=== PATIENT | male | born 1995 | race American Indian/Alaskan Native ===

== ENCOUNTER 2018-11-02 11:06 | Inpatient (IN) | payer SELFPAY ==
--- NOTE | 2018-11-02 11:52 | Emergency Department Report ---
HPI - General Chief Complaint: Altered Mental Status Time Seen by Provider: 11/02/18 11:38 - HPI HPI: Room 21 The patient is a 23-year-old male presenting with chief complaint of altered mental status. The patient is currently at [facility]. The patient poorly went to the gas station when he came back he was found sitting on the bed drooling and incontinent. Patient A&O 3 currently and denies taking any recreational drugs Location: Mental state Duration: [See above] Quality: Altered Severity: [See above] Modifying factors: [see above] Context: [see above] Mode of transportation: [not driving] ED Past Medical Hx - Past Medical History Previous Medical History?: Yes Hx Psychiatric Treatment: Yes (Paranoid schizophrenia) Additional medical history: Heart murmur, traumatic brain injury - Surgical History Past Surgical History?: No - Family History Family history: no significant - Social History Smoking Status: Current Every Day Smoker Substance Use Type: None ED Review of Systems ROS: Stated complaint: AMS Other details as noted in HPI Constitutional: no symptoms reported Eyes: denies: eye pain ENT: denies: throat pain Respiratory: no symptoms reported Cardiovascular: denies: chest pain Endocrine: no symptoms reported Gastrointestinal: denies: abdominal pain Genitourinary: denies: dysuria Musculoskeletal: denies: back pain Neurological: other (altered mental status) Physical Exam - Physical Exam Vital Signs: Vital Signs 11/02/18 11:24 Temperature 97.9 F Pulse Rate 102 H Respiratory 16 Rate Blood Pressure 128/66 O2 Sat by Pulse 97 Oximetry Physical Exam: GENERAL: The patient is well-developed well-nourished male lying on stretcher not appearing to be in acute distress. [] HEENT: Atraumatic. Extraocular motions are intact. Patient has moist mucous membranes. NECK: Supple. Trachea midline CHEST/LUNGS: Clear to auscultation. There is no respiratory distress noted. HEART/CARDIOVASCULAR: Regular. There is no tachycardia. There is no gallop rub or murmur. ABDOMEN: Abdomen is soft, nontender. Patient has normal bowel sounds. There is no abdominal distention. SKIN: There is no rash. There is no edema. There is no diaphoresis. NEURO: The patient is awake, alert, and oriented. The patient is cooperative. The patient has no focal neurologic deficits. The patient has normal speech. Cranial nerves II through XII grossly intact, no drift MUSCULOSKELETAL: There is no evidence of acute injury. ED Course Vital Signs 11/02/18 11:24 Temperature 97.9 F Pulse Rate 102 H Respiratory 16 Rate Blood Pressure 128/66 O2 Sat by Pulse 97 Oximetry ED Medical Decision Making - Lab Data Result diagrams: 11/02/18 11:52 11/02/18 11:52 Laboratory Tests 11/02/18 11/02/18 11/02/18 11:52 11:52 11:52 WBC 5.3 RBC 3.98 Hgb 13.3 Hct 39.4 MCV 99 H MCH 33 H MCHC 34 RDW 14.9 Plt Count 305 Lymph % (Auto) 23.5 [place] % (Auto) 7.9 H Eos % (Auto) 0.5 Baso % (Auto) 0.5 Lymph # 1.2 [place] # 0.4 Eos # 0.0 Baso # 0.0 Seg Neutrophils % 67.6 Seg Neutrophils # 3.5 Sodium 142 Potassium 4.5 Chloride 103.5 Carbon Dioxide 27 Anion Gap 16 BUN 10 Creatinine 0.8 Estimated GFR > 60 BUN/Creatinine Ratio 13 Glucose 130 H Calcium 9.4 Total Bilirubin 0.30 AST 24 ALT 13 Alkaline Phosphatase 98 Total Creatine Kinase 594 H CK-MB (CK-2) 3.0 CK-MB (CK-2) Rel Index 0.5 Troponin T < 0.010 Total Protein 8.3 H Albumin 4.6 Albumin/Globulin Ratio 1.2 TSH Free T4 Salicylates < 0.3 L Urine Opiates Screen Urine Methadone Screen Acetaminophen Ur Barbiturates Screen Ur Phencyclidine Scrn Ur Amphetamines Screen U Benzodiazepines Scrn Urine Cocaine Screen U Marijuana (THC) Screen Drugs of Abuse Note Plasma/Serum Alcohol 11/02/18 11/02/18 11/02/18 11:52 11:52 11:52 WBC RBC Hgb Hct MCV MCH MCHC RDW Plt Count Lymph % (Auto) [place] % (Auto) Eos % (Auto) Baso % (Auto) Lymph # [place] # Eos # Baso # Seg Neutrophils % Seg Neutrophils # Sodium Potassium Chloride Carbon Dioxide Anion Gap BUN Creatinine Estimated GFR BUN/Creatinine Ratio Glucose Calcium Total Bilirubin AST ALT Alkaline Phosphatase Total Creatine Kinase CK-MB (CK-2) CK-MB (CK-2) Rel Index Troponin T Total Protein Albumin Albumin/Globulin Ratio TSH 2.540 Free T4 1.09 Salicylates Urine Opiates Screen Urine Methadone Screen Acetaminophen < 5.0 L Ur Barbiturates Screen Ur Phencyclidine Scrn Ur Amphetamines Screen U Benzodiazepines Scrn Urine Cocaine Screen U Marijuana (THC) Screen Drugs of Abuse Note Plasma/Serum Alcohol < 0.01 11/02/18 Unknown WBC RBC Hgb Hct MCV MCH MCHC RDW Plt Count Lymph % (Auto) [place] % (Auto) Eos % (Auto) Baso % (Auto) Lymph # [place] # Eos # Baso # Seg Neutrophils % Seg Neutrophils # Sodium Potassium Chloride Carbon Dioxide Anion Gap BUN Creatinine Estimated GFR BUN/Creatinine Ratio Glucose Calcium Total Bilirubin AST ALT Alkaline Phosphatase Total Creatine Kinase CK-MB (CK-2) CK-MB (CK-2) Rel Index Troponin T Total Protein Albumin Albumin/Globulin Ratio TSH Free T4 Salicylates Urine Opiates Screen Presumptive negative Urine Methadone Screen Presumptive negative Acetaminophen Ur Barbiturates Screen Presumptive negative Ur Phencyclidine Scrn Presumptive negative Ur Amphetamines Screen Presumptive negative U Benzodiazepines Scrn Presumptive negative Urine Cocaine Screen Presumptive negative U Marijuana (THC) Screen Presumptive negative Drugs of Abuse Note Disclamer Plasma/Serum Alcohol - Differential Diagnosis substance abuse, ICH, electrolyte abnormality Critical care attestation.: If time is entered above; I have spent that time in minutes in the direct care of this critically ill patient, excluding procedure time. ED Disposition Clinical Impression: Altered mental status Disposition: DC-07 LEFT AGAINST MED ADVICE Is pt being admited?: No Does the pt Need Aspirin: No Condition: Undetermined Time of Disposition: 14:02
[2018-11-02 12:02] LABS: Basophils % (Auto) 0.5 % (0.0-1.8); Eosinophils % (Auto) 0.5 % (0.0-4.3); Hematocrit 39.4 % (35.5-45.6); Hemoglobin 13.3 gm/dl (11.8-15.2); Lymphocytes # (Auto) 1.2 K/mm3 (1.2-5.4); Lymphocytes % (Auto) 23.5 % (13.4-35.0); Mean Corpuscular HGB Conc 34 % (32-34); Mean Corpuscular Volume 99 fl (84-94); Monocytes # (Auto) 0.4 K/mm3 (0.0-0.8); Monocytes % (Auto) 7.9 % (0.0-7.3); Platelet Count 305 K/mm3 (140-440); Red Blood Count 3.98 M/mm3 (3.65-5.03); Red Cell Distribution Width 14.9 % (13.2-15.2)
[2018-11-02 12:53] LABS: Alanine Aminotransferase 13 units/L (7-56); Albumin 4.6 g/dL (3.9-5); BUN/Creatinine Ratio 13; Blood Urea Nitrogen 10 mg/dL (9-20); Calcium 9.4 mg/dL (8.4-10.2); Hemolysis Index 12
[2018-11-02 13:05] LABS: Free T4 (Free Thyroxine) 1.09 ng/dL (0.76-1.46)
[2018-11-02 13:36] LABS: Amphetamine Screen,Urine PRESUMPTIVE NEGATIVE; Benzodiazepines Screen,Urine PRESUMPTIVE NEGATIVE; Cannabinoid Screen,Urine PRESUMPTIVE NEGATIVE; Cocaine Screen,Urine PRESUMPTIVE NEGATIVE; Methadone Screen,Urine PRESUMPTIVE NEGATIVE; Opiate Screen,Urine PRESUMPTIVE NEGATIVE
--- NOTE | 2018-11-02 14:49 | Cat Scan Report ---
CT scan of head without IV contrast: History: Altered mental status. Findings: Ventricles are normal in size and midline in location. Ill-defined area of low attenuation noted in the left frontal lobe without definite midline shift or compression of the adjacent lateral ventricle. Normal brainstem and cerebellum. No extra-axial fluid collection. Impression: Low attenuation area left frontal region is probably related to chronic ischemia. No previous studies available for comparison. Clinical correlation and if necessary Recommend MRI scan for further evaluation.
[2018-11-02] MEDS ORDERED: NACL 0.9% 1000 ML 1,000 ML IV ONE (17:08)
[2018-11-02] MEDS ORDERED: KEPPRA 1,000 MG/NS 0.75% 100ML 1,000 MG/100 ML BAG IV ONE (17:08)
[2018-11-02] MEDS ORDERED: TYLENOL PO PRN (21:56)
[2018-11-02] MEDS ORDERED: ZOFRAN IV PRN (21:56)
[2018-11-02] MEDS ORDERED: SODIUM CHLORIDE FLUSH SYRINGE 10 ML IV PRN (21:56)
--- NOTE | 2018-11-02 21:56 | History and Physical Report ---
History of Present Illness Date of examination: 11/02/18 History of present illness: Patient is sedated, unable to give a history. History is obtained from the chart. This is a 23-year-old man from [place] with a history of schizophrenia, TBI sent to the emergency room for evaluation. He was reported that the patient was found to be incontinent, drooling while sitting on bed, he was sent to emergency room for further evaluation. In the emergency room he refused admission. He was later found on the floor post-ictal per the nurse. His CAT scan of the head was abnormal, showing abnormality in the frontal area. Review of system is unobtainable SPAST MEDICAL HISTORY:schizophrenia, TBI PAST SURGICAL HISTORY: Unknown SOCIAL HISTORY: Unknown FAMILY HISTORY: Unknown Medications and Allergies Allergies Allergy/AdvReac Type Severity Reaction Status Date / Time gabapentin [From Neurontin] Allergy Unknown Verified 11/02/18 11:38 risperidone [From Risperdal] Allergy Unknown Verified 11/02/18 11:38 Exam - Physical Exam Narrative exam: General Apperance: The patient lying in bed, breathing comfortable, intubated HEENT: Normocephalic, atraumatic. Pupils equally round and reactive to light, unable to do EOM, no sclericterus or JVD or thyromegaly or nodule. , no carotid bruit, mucous membranes moist, unable to examine oral cavity, ET tube in place Heart: S1-S2, regular is rhythm Lungs: Clear to auscultation bilaterally, breathing comfortable Abdomen: Positive bowel sounds, soft, nondistended, no organomegaly Extremities: No edema cyanosis clubbing Skin: no rash, nodule, warm and dry Neuro: Sedated - Constitutional Vitals: Temp Pulse Resp BP Pulse Ox 97.9 F 76 16 129/79 98 11/02/18 21:00 11/02/18 21:00 11/02/18 21:00 11/02/18 21:00 11/02/18 21:00 Results - Labs CBC & Chem 7: 11/02/18 11:52 11/02/18 11:52 Labs: Abnormal lab results 11/02/18 11/02/18 11/02/18 Range/Units 11:52 11:52 11:52 MCV 99 H (84-94) fl MCH 33 H (28-32) pg [place] % (Auto) 7.9 H (0.0-7.3) % Glucose 130 H (75-100) mg/dL Total Creatine Kinase 594 H (55-170) units/L Total Protein 8.3 H (6.3-8.2) g/dL Salicylates < 0.3 L (2.8-20.0) mg/dL Acetaminophen (10.0-30.0) ug/mL 11/02/18 Range/Units 11:52 MCV (84-94) fl MCH (28-32) pg [place] % (Auto) (0.0-7.3) % Glucose (75-100) mg/dL Total Creatine Kinase (55-170) units/L Total Protein (6.3-8.2) g/dL Salicylates (2.8-20.0) mg/dL Acetaminophen < 5.0 L (10.0-30.0) ug/mL - Imaging and Cardiology CT Scan - head: report reviewed Assessment and Plan Assessment Altered mental status, possible seizure Abnormal CT head Schizophrenia H/o TBI Plan Admit to medicine Start IV fluid, ativan and obatain MR head consult neurology, neuro checks, DVT prophalaxis
[2018-11-02] MEDS ORDERED: NACL 0.9% 1000 ML 1,000 ML IV SCH (22:00)
[2018-11-02] MEDS: SODIUM CHLORIDE FLUSH SYRINGE 10 ML IV SCH (22:13)
[2018-11-02] MEDS ORDERED: ATIVAN IV PRN (22:14)
[2018-11-03 07:26] LABS: BUN/Creatinine Ratio 11; Blood Urea Nitrogen 9 mg/dL (9-20); Calcium 8.6 mg/dL (8.4-10.2); Hemolysis Index 20
[2018-11-03 07:26] LABS: Basophils # (Auto) 0.1 K/mm3 (0.0-0.1); Basophils % (Auto) 0.8 % (0.0-1.8); Eosinophils # (Auto) 0.1 K/mm3 (0.0-0.4); Eosinophils % (Auto) 1.7 % (0.0-4.3); Hematocrit 37.6 % (35.5-45.6); Hemoglobin 12.6 gm/dl (11.8-15.2); Lymphocytes # (Auto) 2.4 K/mm3 (1.2-5.4); Lymphocytes % (Auto) 38.3 % (13.4-35.0); Mean Corpuscular HGB Conc 33 % (32-34); Mean Corpuscular Volume 101 fl (84-94); Monocytes # (Auto) 0.5 K/mm3 (0.0-0.8); Monocytes % (Auto) 8.7 % (0.0-7.3); Platelet Count 265 K/mm3 (140-440); Red Blood Count 3.74 M/mm3 (3.65-5.03)
[2018-11-03] MEDS: SODIUM CHLORIDE FLUSH SYRINGE 10 ML IV SCH ×2 (11:30→21:44)
[2018-11-03] MEDS: LOVENOX SUB-Q SCH (11:30)
[2018-11-03] MEDS: KEPPRA PO SCH ×2 (12:47→21:39)
--- NOTE | 2018-11-03 13:55 | Progress Note ---
Subjective Date of service: 11/03/18 Interval history: very complicated lesion in the left frontal lobe - ? stroke appears Objective - Vital Sign Vital Signs - 12hr 11/03/18 11/03/18 06:14 12:17 Temperature 98.1 F 98.3 F Pulse Rate 85 76 Respiratory 20 20 Rate Blood Pressure 122/56 140/72 O2 Sat by Pulse 96 98 Oximetry - Laboratory Findings CBC and BMP: 11/03/18 04:00 11/03/18 06:30 Abnormal Lab Findings: Abnormal Labs 11/02/18 11/02/18 11/02/18 11:52 11:52 11:52 MCV 99 H MCH 33 H Lymph % (Auto) [place] % (Auto) 7.9 H Chloride Glucose 130 H Total Creatine Kinase 594 H Total Protein 8.3 H Salicylates < 0.3 L Acetaminophen 11/02/18 11/03/18 11/03/18 11:52 04:00 06:30 MCV 101 H MCH 34 H Lymph % (Auto) 38.3 H [place] % (Auto) 8.7 H Chloride 109.2 H Glucose 116 H Total Creatine Kinase Total Protein Salicylates Acetaminophen < 5.0 L
--- NOTE | 2018-11-03 15:07 | Magnetic Resonance Report ---
MRI BRAIN WITHOUT CONTRAST: 11/03/18 CLINICAL: Altered mental status. COMPARISON: 11/02/18 CT head TECHNIQUE: Axial diffusion, T1, T2, gradient echo T2*, coronal and axial FLAIR and sagittal T1 sequences on a 1.5 Romy magnet. FINDINGS: The ventricles and overall size of sulci are normal for age. Encephalomalacia involving the inferior left frontal lobe and anterior inferior left temporal lobe. Encephalomalacia also involves the inferior right frontal gyrus. No restricted diffusion. White matter hyperintensity on T2 and FLAIR involving the frontal lobes is consistent with postischemic gliosis. No mass or mass effect. No hemorrhage, edema or extra-axial collection. No chronic microbleeds on the gradient echo sequence. Normal pituitary and optic chiasm. The brainstem and cerebellum are normal. Intact vascular flow voids. Mild right ethmoid sinusitis. The rest of the sinuses are clear. . The orbits, and soft tissues are normal. Normal calvarium and skull base. IMPRESSION: No evidence of acute/subacute infarct or hemorrhage. 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
--- NOTE | 2018-11-03 15:48 | Progress Note ---
Subjective Date of service: 11/03/18 Interval history: dictated a long note since I went over all films with radiology as well as intnse personal review and there is clear cut evidence of large old frontal lobe tip injury with scar- chronic and small area of right frontal lobe and very sever left temporal lobe tip injury.. al lesions are same age... almost certainly due to traumatic injury agree with anticonvulsants Objective - Vital Sign Vital Signs - 12hr 11/03/18 11/03/18 06:14 12:17 Temperature 98.1 F 98.3 F Pulse Rate 85 76 Respiratory 20 20 Rate Blood Pressure 122/56 140/72 O2 Sat by Pulse 96 98 Oximetry - Laboratory Findings CBC and BMP: 11/03/18 04:00 11/03/18 06:30 Abnormal Lab Findings: Abnormal Labs 11/02/18 11/02/18 11/02/18 11:52 11:52 11:52 MCV 99 H MCH 33 H Lymph % (Auto) [place] % (Auto) 7.9 H Chloride Glucose 130 H Total Creatine Kinase 594 H Total Protein 8.3 H Salicylates < 0.3 L Acetaminophen 11/02/18 11/03/18 11/03/18 11:52 04:00 06:30 MCV 101 H MCH 34 H Lymph % (Auto) 38.3 H [place] % (Auto) 8.7 H Chloride 109.2 H Glucose 116 H Total Creatine Kinase Total Protein Salicylates Acetaminophen < 5.0 L
--- NOTE | 2018-11-04 08:16 | Progress Note ---
Assessment and Plan Altered mental status, possible seizure - ativan as needed, started on keppra - neurology consulted, EEG/MRI ordered Abnormal CT head, MRI pending Schizophrenia, will cont home meds when available H/o TBI, supportive care DVT prophalaxis, lovenox Subjective Date of service: 11/03/18 Interval history: Patient seen and examined. Medical records and medication list reviewed. No acute event overnight noted by the RN. Patient denies any chest pain or difficulty breathing. Patient is tolerating diet. Discussed plan of care at bedside with patient. No further seizure like activity Objective - Exam Narrative Exam: GENERAL: well-developed -[place] male lying on bed appeared to be in no discomfort. HEENT: Normocephalic. Atraumatic. No conjunctival congestion or icterus. Patient has moist mucous membranes. NECK: Supple. Trachea midline. CHEST/LUNGS: Clear to auscultated bilaterally, breathing nonlabored. No wheezes crackles or rhonchi. HEART/CARDIOVASCULAR: Regular in rate and rhythm. S1 and S2 positive. ABDOMEN: Abdomen is soft, nontender. Patient has normal bowel sounds. SKIN: There is no rash. Warm and dry. NEURO: No focal motor deficit. Follows command. MUSCULOSKELETAL: No joint effusion or tenderness. EXTRIMITY: No edema, no cyanosis or clubbing. PSYCH: Cooperative. - Constitutional Vitals: Vital Signs - 12hr 11/03/18 11/04/18 11/04/18 22:00 00:29 05:20 Temperature 97.9 F 97.9 F Pulse Rate 72 77 Respiratory 18 18 20 Rate Respiratory 18 Rate [denies] Blood Pressure 90/41 113/60 O2 Sat by Pulse 97 99 Oximetry - Labs CBC & Chem 7: 11/03/18 04:00 11/03/18 06:30 Labs: Abnormal lab results 11/03/18 Range/Units 06:30 Chloride 109.2 H (98-107) mmol/L Glucose 116 H (75-100) mg/dL
[2018-11-04] MEDS: KEPPRA PO SCH (09:42)
[2018-11-04] MEDS: LOVENOX SUB-Q SCH (09:43)
[2018-11-04] MEDS: SODIUM CHLORIDE FLUSH SYRINGE 10 ML IV SCH (09:44)
[2018-11-04] MEDS ORDERED: AFLURIA QUAD 2018-2019 SYRINGE IM ONE (12:00)
[2018-11-04 12:10] VITALS: BP 128/64
--- NOTE | 2018-11-04 12:15 | Discharge Summary ---
Providers - Providers Date of Admission: 11/02/18 21:56 Date of discharge: 11/04/18 Attending physician: STEFF DURHAM 11/02/18 21:56 Consult to Physician [CONS] Routine Comment: Consulting Provider: RHIANNON CUADRA Physician Instructions: Reason For Exam: [facility] Condition: Undetermined Pertinent studies: CT head Brain MRI Hospital course: This is a 23-year-old man from [place] with a history of schizophrenia, TBI sent to the emergency room as he was found to be incontinent, drooling while sitting on bed. In the emergency room he was found on the floor post-ictal per the nurse. His CAT scan of the head was abnormal, showing abnormality in the frontal area. He was started on Keppra, neurology consulted. MRI brain showed no acute process rather than chronic infract. Patient was then discharged with keppra in stable condition. Discharge diagnosis: Altered mental status, - due to postictal stage from seizure, now resolved Acute breakthrough seizure - Placed on ativan as needed, started on keppra - neurology consulted, EEG/MRI ordered Abnormal CT head, MRI showed no new process Schizophrenia, no acute psychosis, outpt followup H/o TBI, supportive care DVT prophalaxis, lovenox Physical exam GENERAL: well-developed -[place]amanian male lying on bed appeared to be in no discomfort. HEENT: Normocephalic. Atraumatic. No conjunctival congestion or icterus. Patient has moist mucous membranes. NECK: Supple. Trachea midline. CHEST/LUNGS: Clear to auscultated bilaterally, breathing nonlabored. No wheezes crackles or rhonchi. HEART/CARDIOVASCULAR: Regular in rate and rhythm. S1 and S2 positive. ABDOMEN: Abdomen is soft, nontender. Patient has normal bowel sounds. SKIN: There is no rash. Warm and dry. NEURO: No focal motor deficit. Follows command. MUSCULOSKELETAL: No joint effusion or tenderness. EXTRIMITY: No edema, no cyanosis or clubbing. PSYCH: Cooperative. Disposition: DC-01 TO HOME OR SELFCARE Time spent for discharge: 34 minutes Core Measure Documentation - Palliative Care Palliative Care/ Comfort Measures: Not Applicable - Core Measures Any of the following diagnoses?: none Exam - Constitutional Vitals: Temp Pulse Resp BP Pulse Ox 98.9 F 76 18 128/64 96 11/04/18 11:24 11/04/18 11:24 11/04/18 11:24 11/04/18 11:24 11/04/18 11:24 Plan Activity: advance as tolerated, no driving until cleared by PCP, fall precautions Weight Bearing Status: Weight Bear as Tolerated Diet: regular Follow up with: PRIMARY CARE, [Referring] - 3-5 Days RHIANNON CUADRA MD [Staff Physician] - 7 Days Prescriptions: levETIRAcetam [Keppra TAB] 750 mg PO BID #60 tablet
--- NOTE | 2018-11-04 12:41 | Progress Note ---
Subjective Date of service: 11/04/18 Interval history: spoke to patient about about hx and clearly this was massive head trauma he has good recall for situation- advise yousuf menard and can go home Objective - Vital Sign Vital Signs - 12hr 11/04/18 11/04/18 05:20 11:24 Temperature 97.9 F 98.9 F Pulse Rate 77 76 Respiratory 20 18 Rate Blood Pressure 113/60 128/64 O2 Sat by Pulse 99 96 Oximetry - Laboratory Findings CBC and BMP: 11/03/18 04:00 11/03/18 06:30 Abnormal Lab Findings: Abnormal Labs 11/02/18 11/02/18 11/02/18 11:52 11:52 11:52 MCV 99 H MCH 33 H Lymph % (Auto) [place] % (Auto) 7.9 H Chloride Glucose 130 H Total Creatine Kinase 594 H Total Protein 8.3 H Salicylates < 0.3 L Acetaminophen 11/02/18 11/03/18 11/03/18 11:52 04:00 06:30 MCV 101 H MCH 34 H Lymph % (Auto) 38.3 H [place] % (Auto) 8.7 H Chloride 109.2 H Glucose 116 H Total Creatine Kinase Total Protein Salicylates Acetaminophen < 5.0 L
--- NOTE | 2018-11-04 13:04 | Consultation ---
HISTORY OF PRESENT ILLNESS: This is a 23-year-old male who entered the Emergency Room at [facility] on 11/02/2018. He presented to the hospital and was in a confused, disoriented state. Apparently, signed out AMA and then returned to the hospital after leaving, wishing to reconsider his decision to leave against medical advice. A CT had been shown to show a low density mass in the left frontal region. I have reviewed over his MRI with the radiologist and clearly this does show on the MRI, an area within the left frontotemporal region, which does not match the distribution of the artery, a chronic lesion. I would specifically note that on the diffusion weighted images, this area is not seen at all. Therefore, this is not an acute lesion but chronic, has all the characteristics that one would think would be, because of the T2 weighted images showing a low density area in the left frontal tip as well as a subfrontal region on the left and even it is much so on the right subfrontal area within the cortical ____ which is the subfrontal area, an area of low density. This has all the characteristics of a chronic area of brain lesion, likely due to trauma. I cannot comment about the period of time in which it has occurred, but the confluence of the regions and areas involved are nonvascular, being a bifrontal lesion, predominantly more so on the left than the right, but as well also a very large lesion in the left temporal tip. As would be expected, this would be very prone to producing seizures given its distribution. The patient has a severely atrophic left temporal tip on the T1 weighted images on the MR and as well a lack of brain tissue on the similar sequences on the left subfrontal and left frontal tip and to a certain extent in the right side; there is also an effect in the frontal lobe. So I would conclude there is a bifrontal lesion more so on the left than the right and as well lesion involving the entire left temporal tip. This characteristic pattern is typically seen in structural lesions in the brain following fairly severe coup contrecoup head injuries, typically involving the frontal lobe, and although this history may be lacking, it certainly matches with the MRI findings. Classically these conditions are known to produce seizures in a very high percent of the time. I did subsequently go over the bone windows on the CT. I do not see that the patient has any defects in the inner table of the skull. There is no evidence of any previous cranial surgery in this region. I do not see any bony defects in the inner table of the skull either in this region making me suspect a chronic fracture or CSF leak, and the frontal sinus is intact on the left side, leading me to believe that this is not acute, as it would be expected the frontal sinus to be obliterated if this was more of an acute lesion. IMPRESSION: MRI and CT scan findings are very compatible with evidence of old cranial trauma with a bifrontal lesion, left greater than right and a very prominent lesion of the left temporal tip. I will start this patient on anticonvulsant therapy. I do not think that further workup of this such as doing an LP is indicated at this point. I agree with workup and management plan at this point. JOB# [id number] GRZEGORZ/MARKEL
== END 2018-11-04 15:00 | disposition home or self-care (01) | DRG 101 ==
LOC: ED 11:06 → 3A 21:56
PROVIDERS: ADMIT Internal Medicine; ATTEND Internal Medicine
DX: G40.89 Other seizures (principal); F20.0 Paranoid schizophrenia; F17.210 Nicotine dependence, cigarettes, uncomplicated; Z88.8 Allergy status to other drugs, medicaments and biological substances; Z87.820 Personal history of traumatic brain injury; Z71.6 Tobacco abuse counseling
CPT/HCPCS: 36415; 70450; 70551; 80048; 80053; 80307; 80320; 82550; 82553; 84439; 84443; 84484; 85025; 87116; 90686; 96365; 99406; G0378; G0480; J1650; J1953; J7030

== ENCOUNTER 2018-12-02 04:19 | Emergency (ER) | payer SELFPAY ==
[2018-12-02 04:54] LABS: Hematocrit 40.9 % (35.5-45.6); Hemoglobin 14.3 gm/dl (11.8-15.2); Mean Corpuscular HGB Conc 35 % (32-34); Mean Corpuscular Volume 100 fl (84-94); Platelet Count 253 K/mm3 (140-440); Red Blood Count 4.09 M/mm3 (3.65-5.03); Red Cell Distribution Width 13.6 % (13.2-15.2)
[2018-12-02] MEDS ORDERED: KEPPRA 1,000 MG/NS 0.75% 100ML 1,000 MG/100 ML BAG IV ONE (05:07)
--- NOTE | 2018-12-02 05:07 | Emergency Department Report ---
Chief Complaint: Seizure Stated Complaint: SEIZURE - HPI History of Present Illness: Lasha is a 23-year-old male with history of schizophrenia, traumatic brain injury, recent hospitalization for altered mental status and seizure. Discharged with prescription for Keppra according to neurology consultation.. Patient states he no longer has medication. Presents with reported seizure today. I have performed medical screening exam. Patient is awake alert and ambulatory. He is anxious to be discharged. I have ordered Keppra load. - Exam Vital Signs: Vital Signs 12/02/18 04:28 Temperature 97.6 F Pulse Rate 86 Respiratory 18 Rate Blood Pressure 128/84 [Left] O2 Sat by Pulse 99 Oximetry MSE screening note: Focused history and physical exam performed. Due to findings the following was ordered: ED Medical Decision Making - Lab Data Result diagrams: 12/02/18 04:37 ED Disposition for MSE Condition: Stable Referrals: SAVITA BINGHAM MD [Primary Care Provider] - 3-5 Days
[2018-12-02 05:14] LABS: BUN/Creatinine Ratio 8; Blood Urea Nitrogen 8 mg/dL (9-20); Hemolysis Index 7
[2018-12-02] MEDS ORDERED: KEPPRA PO ONE (06:19)
[2018-12-02] MEDS ORDERED: ATIVAN IV ONE (06:21)
--- NOTE | 2018-12-02 06:29 | Emergency Department Report ---
ED General Adult HPI - General Chief complaint: Seizure Stated complaint: SEIZURE Time Seen by Provider: 12/02/18 06:18 Source: patient Mode of arrival: Ambulatory Limitations: Other - History of Present Illness Initial comments: Patient presents to the emergency department for seizures. Patient had a seizure prior to his arrival. Patient is completely lucid and is no longer postictal on my history and physical. Patient states that he is supposed to take Keppra for seizures but he does not take it. Patient states he feels completely fine now and the seizure he had this morning is consistent with seizures previously per witnesses. Patient denies headache, chest pain, shortness of breath. -: Sudden Severity scale (0 -10): 0 Consistency: now resolved Improves with: none Worsens with: none Associated Symptoms: denies other symptoms Treatments Prior to Arrival: none - Related Data Previous Rx's Medication Instructions Recorded Last Taken Type levETIRAcetam [Keppra TAB] 750 mg PO BID #60 tablet 11/04/18 Unknown Rx levETIRAcetam [Keppra TAB] 500 mg PO BID #60 tablet 12/02/18 Unknown Rx Allergies Allergy/AdvReac Type Severity Reaction Status Date / Time gabapentin [From Neurontin] Allergy Unknown Verified 11/02/18 11:38 risperidone [From Risperdal] Allergy Unknown Verified 11/02/18 11:38 ED Review of Systems ROS: Stated complaint: SEIZURE Other details as noted in HPI Comment: All other systems reviewed and negative Constitutional: denies: chills, fever Eyes: denies: eye pain, eye discharge, vision change ENT: denies: ear pain, throat pain Respiratory: denies: cough, shortness of breath, wheezing Cardiovascular: denies: chest pain, palpitations Endocrine: no symptoms reported Gastrointestinal: denies: abdominal pain, nausea, diarrhea Genitourinary: denies: urgency, dysuria Musculoskeletal: denies: back pain, joint swelling, arthralgia Skin: denies: rash, lesions Neurological: denies: headache, weakness, paresthesias Psychiatric: denies: anxiety, depression Hematological/Lymphatic: denies: easy bleeding, easy bruising ED Past Medical Hx - Past Medical History Previous Medical History?: Yes Hx Congestive Heart Failure: No Hx Diabetes: No Hx Seizures: Yes Hx Psychiatric Treatment: Yes (Paranoid schizophrenia) Hx Asthma: Yes Hx COPD: No Additional medical history: Heart murmur, traumatic brain injury - Surgical History Past Surgical History?: No - Social History Smoking Status: Current Every Day Smoker Substance Use Type: Marijuana - Medications Home Medications: Home Medications Medication Instructions Recorded Confirmed Last Taken Type levETIRAcetam [Keppra TAB] 750 mg PO BID #60 tablet 11/04/18 Unknown Rx levETIRAcetam [Keppra TAB] 500 mg PO BID #60 tablet 12/02/18 Unknown Rx ED Physical Exam - General Limitations: Other General appearance: alert, in no apparent distress - Head Head exam: Present: normocephalic, other (facial abrasions) - Eye Eye exam: Present: normal appearance, PERRL, EOMI - ENT ENT exam: Present: mucous membranes moist - Neck Neck exam: Present: normal inspection - Respiratory Respiratory exam: Present: normal lung sounds bilaterally. Absent: respiratory distress - Cardiovascular Cardiovascular Exam: Present: regular rate, normal rhythm. Absent: systolic murmur, diastolic murmur, rubs, gallop - GI/Abdominal GI/Abdominal exam: Present: soft, normal bowel sounds - Rectal Rectal exam: Present: deferred - Extremities Exam Extremities exam: Present: normal inspection - Back Exam Back exam: Present: normal inspection - Neurological Exam Neurological exam: Present: alert, oriented X3, CN II-XII intact. Absent: motor sensory deficit - Psychiatric Psychiatric exam: Present: normal affect, normal mood - Skin Skin exam: Present: warm, dry, intact, normal color. Absent: rash ED Course Vital Signs 12/02/18 04:28 Temperature 97.6 F Pulse Rate 86 Respiratory 18 Rate Blood Pressure 128/84 [Left] O2 Sat by Pulse 99 Oximetry ED Medical Decision Making - Lab Data Result diagrams: 12/02/18 04:37 12/02/18 04:37 - Medical Decision Making Patient given IV Keppra and IV Ativan Critical care attestation.: If time is entered above; I have spent that time in minutes in the direct care of this critically ill patient, excluding procedure time. ED Disposition Clinical Impression: Seizure Disposition: DC-01 TO HOME OR SELFCARE Is pt being admited?: No Does the pt Need Aspirin: No Condition: Stable Instructions: Recurrent Seizures Adult (ED) Additional Instructions: return if worse Prescriptions: levETIRAcetam [Keppra TAB] 500 mg PO BID #60 tablet Referrals: RADHA MUHAMMADHOWARD MD [place] [Primary Care Provider] - 3-5 Days [facility] [Provider Group] - 3-5 Days [facility] [Provider Group] - 3-5 Days
[2018-12-02 06:36] VITALS: BP 126/77
== END 2018-12-02 07:06 | disposition home or self-care (01) ==
LOC: ED 04:19
DX: F20.0 Paranoid schizophrenia (principal); J45.909 Unspecified asthma, uncomplicated; F17.200 Nicotine dependence, unspecified, uncomplicated; F12.10 Cannabis abuse, uncomplicated; Z88.8 Allergy status to other drugs, medicaments and biological substances
CPT/HCPCS: 36415; 80048; 82962; 85027; 96374; 99284; J1953; J2060

== ENCOUNTER 2019-05-31 17:26 | Emergency (ER) | payer SELFPAY ==
[2019-05-31] MEDS ORDERED: LORazepam 2 MG/ML VIAL IV ONE (18:40)
[2019-05-31] MEDS ORDERED: levETIRAcetam 1000 MG/NS 0.75% 1,000 MG/100 ML BAG IV ONE (18:40)
--- NOTE | 2019-05-31 18:46 | Emergency Department Report ---
ED Seizure HPI - General Chief Complaint: Seizure Stated Complaint: SEIZURE Time Seen by Provider: 05/31/19 18:36 Source: patient Mode of arrival: Ambulatory Limitations: No Limitations - History of Present Illness Initial Comments: Mr. Márquez is a 24 yo gentleman with a history of schizophrenia, traumatic brain injury who presents with witnessed seizure at the [place]. He states that he does have seizures when he has not taken his medication. He takes Keppra 1000 mg twice a day. He denies pain. Denies headache. He has been in his normal state of health. This history is corroborated by previous documentation in EMR. MD Complaint: seizure -: Sudden, This evening Witnessed:: Yes Trauma: No Seizure History: known seizure disorder Place: home Possible Precipitating Event: other (lack of medication) Associated Symptoms: denies other symptoms - Related Data Previous Rx's Medication Instructions Recorded Last Taken Type levETIRAcetam [Keppra TAB] 750 mg PO BID #60 tablet 11/04/18 Unknown Rx levETIRAcetam [Keppra TAB] 500 mg PO BID #60 tablet 12/02/18 Unknown Rx levETIRAcetam [Keppra TAB] 1,000 mg PO BID 30 Days #60 tab 05/31/19 Unknown Rx Allergies Allergy/AdvReac Type Severity Reaction Status Date / Time gabapentin [From Neurontin] Allergy Unknown Verified 11/02/18 11:38 risperidone [From Risperdal] Allergy Unknown Verified 11/02/18 11:38 ED Review of Systems ROS: Stated complaint: SEIZURE Other details as noted in HPI Comment: All other systems reviewed and negative Constitutional: denies: fever, malaise Musculoskeletal: denies: back pain Neurological: denies: headache, numbness, paresthesias Psychiatric: denies: anxiety, depression, auditory hallucinations, visual hallucinations, homicidal thoughts, suicidal thoughts ED Past Medical Hx - Past Medical History Previous Medical History?: Yes Hx Congestive Heart Failure: No Hx Diabetes: No Hx Seizures: Yes Hx Psychiatric Treatment: Yes (Paranoid schizophrenia) Hx Asthma: Yes Hx COPD: No Additional medical history: Heart murmur, traumatic brain injury - Surgical History Past Surgical History?: Yes - Social History Smoking Status: Never Smoker Substance Use Type: Marijuana - Medications Home Medications: Home Medications Medication Instructions Recorded Confirmed Last Taken Type levETIRAcetam [Keppra TAB] 750 mg PO BID #60 tablet 11/04/18 Unknown Rx levETIRAcetam [Keppra TAB] 500 mg PO BID #60 tablet 12/02/18 Unknown Rx levETIRAcetam [Keppra TAB] 1,000 mg PO BID 30 Days #60 tab 05/31/19 Unknown Rx ED Physical Exam - General Limitations: No Limitations General appearance: alert, in no apparent distress, other (GCS of 15 alert talkative cooperative) - Head Head exam: Present: atraumatic, normocephalic - Eye Eye exam: Present: normal appearance - ENT ENT exam: Present: mucous membranes moist - Neck Neck exam: Present: normal inspection, full ROM - Respiratory Respiratory exam: Present: normal lung sounds bilaterally. Absent: respiratory distress, wheezes, rales, rhonchi - Cardiovascular Cardiovascular Exam: Present: regular rate, normal rhythm, normal heart sounds. Absent: systolic murmur, diastolic murmur, rubs, gallop - GI/Abdominal GI/Abdominal exam: Present: soft, normal bowel sounds. Absent: distended, tenderness, guarding, rebound - Rectal Rectal exam: Present: deferred - Extremities Exam Extremities exam: Present: normal inspection - Neurological Exam Neurological exam: Present: alert, oriented X3 - Psychiatric Psychiatric exam: Present: normal affect, normal mood - Skin Skin exam: Present: warm, dry, intact, normal color. Absent: rash ED Medical Decision Making - Medical Decision Making Mr. Márquez is a 24-year-old gentleman with history of seizure, TBI as well as schizophrenia. He presents s/p witnessed seizure. Upon my evaluation, he was awake alert insightful. He admits to medication noncompliance. He received IV lorazepam and IV Keppra in the emergency department. I prescribed 1000 mg twice a day Keppra 30 day supply which he stated is his new dosing. He is neurologically intact. He is at baseline mental status. There was no evidence of trauma secondary to the seizure. Critical care attestation.: If time is entered above; I have spent that time in minutes in the direct care of this critically ill patient, excluding procedure time. ED Disposition Clinical Impression: Seizure, Seizure disorder Disposition: DC-01 TO HOME OR SELFCARE Is pt being admited?: No Does the pt Need Aspirin: No Condition: Stable Instructions: Epilepsy (ED) Prescriptions: levETIRAcetam [Keppra TAB] 1,000 mg PO BID 30 Days #60 tab Referrals: STEVEN COLES MD [Staff Physician] - 3-5 Days
[2019-05-31 19:33] VITALS: BP 122/78
== END 2019-05-31 19:57 | disposition home or self-care (01) ==
LOC: ED 17:26
DX: G40.909 Epilepsy, unspecified, not intractable, without status epilepticus (principal); F20.0 Paranoid schizophrenia; F12.10 Cannabis abuse, uncomplicated; Z79.899 Other long term (current) drug therapy; Z88.6 Allergy status to analgesic agent
CPT/HCPCS: 96365; 96375; 99282; J1953; J2060

== ENCOUNTER 2019-06-11 15:42 | Emergency (ER) | payer SELFPAY ==
[2019-06-11 17:29] LABS: BUN/Creatinine Ratio 11; Blood Urea Nitrogen 8 mg/dL (9-20); Calcium 10.1 mg/dL (8.4-10.2); Hemolysis Index 20
[2019-06-11 17:39] LABS: Basophils # (Auto) 0.1 K/mm3 (0.0-0.1); Basophils % (Auto) 0.8 % (0.0-1.8); Eosinophils # (Auto) 0.1 K/mm3 (0.0-0.4); Eosinophils % (Auto) 1.6 % (0.0-4.3); Hematocrit 47.1 % (35.5-45.6); Lymphocytes # (Auto) 2.1 K/mm3 (1.2-5.4); Lymphocytes % (Auto) 28.3 % (13.4-35.0); Mean Corpuscular HGB Conc 34 % (32-34); Mean Corpuscular Volume 100 fl (84-94); Monocytes # (Auto) 0.7 K/mm3 (0.0-0.8); Monocytes % (Auto) 8.7 % (0.0-7.3); Platelet Count 300 K/mm3 (140-440); Red Blood Count 4.72 M/mm3 (3.65-5.03)
[2019-06-11 17:53] VITALS: BP 127/70
[2019-06-11 18:02] LABS: Bilirubin,Urine NEG (Negative); Blood,Urine NEG (Negative); Color,Urine Yellow (Yellow); Mucus,Urine FEW /HPF; Protein,Urine <15 mg/dL mg/dL (Negative)
[2019-06-11 18:09] LABS: Amphetamine Screen,Urine PRESUMPTIVE NEGATIVE; Benzodiazepines Screen,Urine PRESUMPTIVE NEGATIVE; Cocaine Screen,Urine PRESUMPTIVE NEGATIVE; Methadone Screen,Urine PRESUMPTIVE NEGATIVE; Opiate Screen,Urine PRESUMPTIVE NEGATIVE
[2019-06-11 18:20] LABS: Cannabinoid Screen,Urine PRESUMPTIVE POSITIVE
--- NOTE | 2019-06-11 18:33 | Emergency Department Report ---
ED General Adult HPI - General Chief complaint: Psych Stated complaint: MH (HEARING SOUNDS) Time Seen by Provider: 06/11/19 18:14 Source: EMS Mode of arrival: Ambulatory Limitations: No Limitations - History of Present Illness Initial comments: 24-year-old male presents to ED seeking fdc. Patient states he is homeless and was recently kicked out of [place]. Patient reports a history of bipolar and schizophrenia. Patient denies any SI or HI. He reports he is hearing clicking noises in his head, however denies hearing any voices. -: This afternoon Severity scale (0 -10): 0 Associated Symptoms: denies other symptoms - Related Data Previous Rx's Medication Instructions Recorded Last Taken Type levETIRAcetam [Keppra TAB] 750 mg PO BID #60 tablet 11/04/18 Unknown Rx levETIRAcetam [Keppra TAB] 500 mg PO BID #60 tablet 12/02/18 Unknown Rx levETIRAcetam [Keppra TAB] 1,000 mg PO BID 30 Days #60 tab 05/31/19 Unknown Rx Sulfamethoxazole/Trimethoprim 1 each PO BID #6 tablet 06/11/19 Unknown Rx [Bactrim DS TAB] Allergies Allergy/AdvReac Type Severity Reaction Status Date / Time gabapentin [From Neurontin] Allergy Unknown Verified 11/02/18 11:38 risperidone [From Risperdal] Allergy Unknown Verified 11/02/18 11:38 ED Review of Systems ROS: Stated complaint: MH (HEARING SOUNDS) Other details as noted in HPI Comment: All other systems reviewed and negative Psychiatric: auditory hallucinations. denies: visual hallucinations, homicidal thoughts, suicidal thoughts ED Past Medical Hx - Past Medical History Previous Medical History?: Yes Hx Congestive Heart Failure: No Hx Diabetes: No Hx Seizures: Yes Hx Psychiatric Treatment: Yes (Paranoid schizophrenia) Hx Asthma: Yes Hx COPD: No Additional medical history: Heart murmur, traumatic brain injury - Social History Smoking Status: Current Every Day Smoker Substance Use Type: Alcohol, Marijuana - Medications Home Medications: Home Medications Medication Instructions Recorded Confirmed Last Taken Type levETIRAcetam [Keppra TAB] 750 mg PO BID #60 tablet 11/04/18 Unknown Rx levETIRAcetam [Keppra TAB] 500 mg PO BID #60 tablet 12/02/18 Unknown Rx levETIRAcetam [Keppra TAB] 1,000 mg PO BID 30 Days #60 tab 05/31/19 Unknown Rx Sulfamethoxazole/Trimethoprim 1 each PO BID #6 tablet 06/11/19 Unknown Rx [Bactrim DS TAB] ED Physical Exam - General Limitations: No Limitations General appearance: alert, in no apparent distress - Head Head exam: Present: atraumatic, normocephalic - Eye Eye exam: Present: normal appearance - ENT ENT exam: Present: mucous membranes moist - Neck Neck exam: Present: normal inspection - Respiratory Respiratory exam: Present: normal lung sounds bilaterally. Absent: respiratory distress - Cardiovascular Cardiovascular Exam: Present: regular rate, normal rhythm - GI/Abdominal GI/Abdominal exam: Absent: distended - Extremities Exam Extremities exam: Present: normal inspection - Neurological Exam Neurological exam: Present: alert, oriented X3 - Psychiatric Psychiatric exam: Present: normal affect, normal mood - Skin Skin exam: Present: warm, dry, intact, normal color ED Course Vital Signs 06/11/19 17:05 Temperature 98.1 F Pulse Rate 72 Respiratory 18 Rate Blood Pressure 127/70 [Left] O2 Sat by Pulse 100 Oximetry ED Medical Decision Making - Lab Data Result diagrams: 06/11/19 16:42 06/11/19 16:42 - Medical Decision Making Meal tray was given. Glucose 49 in labwork. Repeat accucheck 115. No SI or HI. Will discharge at this time. Outpt resources given. Critical care attestation.: If time is entered above; I have spent that time in minutes in the direct care of this critically ill patient, excluding procedure time. ED Disposition Clinical Impression: Schizophrenia, UTI (urinary tract infection) Disposition: TO HOME OR SELFCARE Is pt being admited?: No Condition: Stable Instructions: Urinary Tract Infection in Men (ED), Schizophrenia (ED) Prescriptions: Sulfamethoxazole/Trimethoprim [Bactrim DS TAB] 1 each PO BID #6 tablet Referrals: PRIMARY CARE, [Primary Care Provider] - 3-5 Days [facility] [Outside] - 3-5 Days Time of Disposition: 18:32
== END 2019-06-11 19:18 | disposition home or self-care (01) ==
LOC: ED 15:42 → EEVIPCON 15:42 → ED 19:18
DX: F20.9 Schizophrenia, unspecified (principal); N39.0 Urinary tract infection, site not specified; J45.909 Unspecified asthma, uncomplicated; F17.200 Nicotine dependence, unspecified, uncomplicated; F12.10 Cannabis abuse, uncomplicated; Z88.6 Allergy status to analgesic agent
CPT/HCPCS: 36415; 80048; 80307; 80320; 81001; 82962; 85025; 87086; G0480

== ENCOUNTER 2019-09-02 12:36 | Emergency (ER) | payer SELFPAY ==
[2019-09-02 12:47] VITALS: BP 137/68
--- NOTE | 2019-09-02 12:49 | Emergency Department Report ---
ED Recheck HPI - General Chief Complaint: Recheck/Abnormal Lab/Rx Stated Complaint: MED REFILL Time Seen by Provider: 09/02/19 12:44 Source: patient Mode of arrival: Ambulatory Limitations: No Limitations - History of Present Illness Initial Comments: This is a 24-year-old male nontoxic, well in appearance with no signs of distress presents to the ED for medication refill. Patient stated he is out of his Keppra. Denies any symptoms otherwise. Denies any SI/HI. Patient denies any neck pain or back pains. Patient denies loss of consciousness, head trauma, ecchymosis, chest pain, short of breath, headache, blurry vision, fever, chills, stiff neck, decreased range of motion, bladder or bowel instability, diaphoresis, nausea, vomiting, abdominal pain, joint pain or swelling, visual changes, chest wall tenderness, numbness or tingling sensation extremity. MD Complaint: medication refill request -: days(s) Returns Today for: request for prescription Symptoms Since Prior Visit: no new symptoms Context: ran out of medication Associated Symptoms: none. denies: fever, chills, chest pain, shortness of breath, rash, malaise, nasuea, abdominal pain - Related Data Previous Rx's Medication Instructions Recorded Last Taken Type levETIRAcetam [Keppra TAB] 750 mg PO BID #60 tablet 11/04/18 Unknown Rx levETIRAcetam [Keppra TAB] 500 mg PO BID #60 tablet 12/02/18 Unknown Rx Sulfamethoxazole/Trimethoprim 1 each PO BID #6 tablet 06/11/19 Unknown Rx [Bactrim DS TAB] levETIRAcetam [Keppra TAB] 1,000 mg PO BID 30 Days #60 tab 09/02/19 Unknown Rx Allergies Allergy/AdvReac Type Severity Reaction Status Date / Time gabapentin [From Neurontin] Allergy Unknown Verified 09/02/19 12:37 risperidone [From Risperdal] Allergy Unknown Verified 09/02/19 12:37 ED Review of Systems ROS: Stated complaint: MED REFILL Other details as noted in HPI Constitutional: denies: chills, fever Eyes: denies: eye pain, eye discharge, vision change ENT: denies: ear pain, throat pain Respiratory: denies: cough, shortness of breath, wheezing Cardiovascular: denies: chest pain, palpitations Endocrine: no symptoms reported Gastrointestinal: denies: abdominal pain, nausea, diarrhea Genitourinary: denies: urgency, dysuria Musculoskeletal: denies: back pain, joint swelling, arthralgia Skin: denies: rash, lesions Neurological: denies: headache, weakness, paresthesias Psychiatric: denies: anxiety, depression Hematological/Lymphatic: denies: easy bleeding, easy bruising ED Past Medical Hx - Past Medical History Hx Congestive Heart Failure: No Hx Diabetes: No Hx Seizures: Yes Hx Psychiatric Treatment: Yes (Paranoid schizophrenia) Hx Asthma: Yes Hx COPD: No Additional medical history: Heart murmur, traumatic brain injury - Social History Smoking Status: Current Every Day Smoker Substance Use Type: Marijuana - Medications Home Medications: Home Medications Medication Instructions Recorded Confirmed Last Taken Type levETIRAcetam [Keppra TAB] 750 mg PO BID #60 tablet 11/04/18 Unknown Rx levETIRAcetam [Keppra TAB] 500 mg PO BID #60 tablet 12/02/18 Unknown Rx Sulfamethoxazole/Trimethoprim 1 each PO BID #6 tablet 06/11/19 Unknown Rx [Bactrim DS TAB] levETIRAcetam [Keppra TAB] 1,000 mg PO BID 30 Days #60 tab 09/02/19 Unknown Rx ED Physical Exam - General Limitations: No Limitations General appearance: alert, in no apparent distress - Head Head exam: Present: atraumatic, normocephalic - Eye Eye exam: Present: normal appearance, PERRL, EOMI - Neck Neck exam: Present: normal inspection, full ROM - Extremities Exam Extremities exam: Present: normal inspection, full ROM - Back Exam Back exam: Present: normal inspection, full ROM. Absent: tenderness, CVA tenderness (R), CVA tenderness (L), muscle spasm, paraspinal tenderness, vertebral tenderness, rash noted - Neurological Exam Neurological exam: Present: alert, oriented X3, normal gait - Psychiatric Psychiatric exam: Present: normal affect, normal mood. Absent: depressed, agitated, anxious, flat affect, manic, homicidal ideation, suicidal ideation - Skin Skin exam: Present: warm, dry, intact, normal color. Absent: rash ED Course - Reevaluation(s) Reevaluation #1: 09/02/19 12:50 Patient is speaking in full sentences with no signs of distress noted. ED Recheck MDM - Medical Decision Making Patient was instructed to Follow-up with a primary care doctor in 3-5 days or if symptoms worsen and continue return to emergency room as soon as possible. At time of discharge, the patient does not seem toxic or ill in appearance. No acute signs of distress noted. Patient agrees to discharge treatment plan of care. No further questions noted by the patient. Critical care attestation.: If time is entered above; I have spent that time in minutes in the direct care of this critically ill patient, excluding procedure time. ED Disposition Clinical Impression: Medication refill Disposition: DC-01 TO HOME OR SELFCARE Is pt being admited?: No Does the pt Need Aspirin: No Condition: Stable Instructions: Levetiracetam (By mouth) Additional Instructions: Follow-up with a primary care doctor in 3-5 days or if symptoms worsen and continue return to emergency room as soon as possible. Prescriptions: levETIRAcetam [Keppra TAB] 1,000 mg PO BID 30 Days #60 tab Referrals: ELIZABETH JACKSON MD [Referring] - 3-5 Days HEATHER CHISHOLM MD [Staff Physician] - 3-5 Days [facility] [Outside] - 3-5 Days
== END 2019-09-02 13:21 | disposition home or self-care (01) ==
LOC: ED 12:36
DX: R56.9 Unspecified convulsions (principal); J45.909 Unspecified asthma, uncomplicated; F20.0 Paranoid schizophrenia; F17.200 Nicotine dependence, unspecified, uncomplicated; F12.90 Cannabis use, unspecified, uncomplicated; Z76.0 Encounter for issue of repeat prescription; Z88.8 Allergy status to other drugs, medicaments and biological substances; Z79.899 Other long term (current) drug therapy
CPT/HCPCS: 99282

== ENCOUNTER 2019-09-10 16:26 | Emergency (ER) | payer SELFPAY ==
[2019-09-10 17:02] LABS: Basophils # (Auto) 0.1 K/mm3 (0.0-0.1); Basophils % (Auto) 0.8 % (0.0-1.8); Eosinophils # (Auto) 0.1 K/mm3 (0.0-0.4); Eosinophils % (Auto) 0.7 % (0.0-4.3); Hematocrit 40.8 % (35.5-45.6); Hemoglobin 13.3 gm/dl (11.8-15.2); Lymphocytes # (Auto) 2.5 K/mm3 (1.2-5.4); Lymphocytes % (Auto) 32.6 % (13.4-35.0); Mean Corpuscular HGB Conc 33 % (32-34); Mean Corpuscular Volume 99 fl (84-94); Monocytes # (Auto) 0.5 K/mm3 (0.0-0.8); Monocytes % (Auto) 6.4 % (0.0-7.3); Platelet Count 237 K/mm3 (140-440); Red Blood Count 4.11 M/mm3 (3.65-5.03); Red Cell Distribution Width 13.4 % (13.2-15.2)
[2019-09-10 17:13] LABS: Bilirubin,Urine NEG (Negative); Blood,Urine NEG (Negative); Color,Urine Colorless (Yellow); Protein,Urine <15 mg/dL mg/dL (Negative); Urobilinogen,Urine < 2.0 mg/dL (<2.0)
[2019-09-10 17:18] LABS: Amphetamine Screen,Urine PRESUMPTIVE NEGATIVE; Benzodiazepines Screen,Urine PRESUMPTIVE NEGATIVE; Cocaine Screen,Urine PRESUMPTIVE NEGATIVE; Methadone Screen,Urine PRESUMPTIVE NEGATIVE; Opiate Screen,Urine PRESUMPTIVE NEGATIVE
[2019-09-10 17:24] LABS: BUN/Creatinine Ratio 6; Blood Urea Nitrogen 6 mg/dL (9-20); Calcium 9.1 mg/dL (8.4-10.2); Hemolysis Index 4
[2019-09-10 17:31] LABS: Cannabinoid Screen,Urine PRESUMPTIVE POSITIVE
[2019-09-10] MEDS ORDERED: LORazepam 1 MG TAB PO ONE (18:00)
[2019-09-10] MEDS ORDERED: LORazepam 1 MG TAB ONE (18:01)
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
[2019-09-10] MEDS ORDERED: levETIRAcetam 500 MG TAB PO SCH (22:00)
== END 2019-09-10 19:43 | disposition left against medical advice (07) ==
LOC: ED 16:26
DX: F20.89 Other schizophrenia (principal); J45.909 Unspecified asthma, uncomplicated; F17.210 Nicotine dependence, cigarettes, uncomplicated; F12.10 Cannabis abuse, uncomplicated; Z79.899 Other long term (current) drug therapy; Z88.6 Allergy status to analgesic agent
CPT/HCPCS: 36415; 80048; 80307; 80320; 81001; 85025; 99283; G0480

== ENCOUNTER 2019-09-11 16:03 | Emergency (ER) | payer SELFPAY ==
[2019-09-11 16:30] VITALS: BP 125/57
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
== END 2019-09-11 16:45 | disposition home or self-care (01) ==
LOC: ED 16:03
DX: F41.9 Anxiety disorder, unspecified (principal); Z76.0 Encounter for issue of repeat prescription
CPT/HCPCS: 99281; 99282

== ENCOUNTER 2019-10-15 20:06 | Emergency (ER) | payer SELFPAY ==
[2019-10-15 20:58] VITALS: BP 122/62
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
== END 2019-10-15 21:46 | disposition home or self-care (01) ==
LOC: ED 20:06
DX: F20.0 Paranoid schizophrenia (principal); G40.909 Epilepsy, unspecified, not intractable, without status epilepticus; J45.909 Unspecified asthma, uncomplicated; F17.200 Nicotine dependence, unspecified, uncomplicated; F12.10 Cannabis abuse, uncomplicated; Z79.899 Other long term (current) drug therapy; Z88.8 Allergy status to other drugs, medicaments and biological substances; Z76.0 Encounter for issue of repeat prescription
CPT/HCPCS: 99282

== ENCOUNTER 2019-11-11 11:08 | Emergency (ER) | payer SELFPAY ==
[2019-11-11 11:13] VITALS: BP 108/70
--- NOTE | 2019-11-11 11:35 | Emergency Department Report ---
Chief Complaint: Recheck/Abnormal Lab/Rx Stated Complaint: PRESCRIPTION Time Seen by Provider: 11/11/19 11:24 - HPI History of Present Illness: This is a 24-year-old male with a past psychiatric history of paranoid schizophrenia who presents here for medication refill of his Ativan. Patient states he has been out of his Ativan for the past 2 weeks. Patient states he takes Ativan for a mood stabilizer. Patient has not had any psychiatric episode in the past months. Patient denies suicidal ideation or homicidal ideation. Patient denies auditory or visual hallucinations. Patient denies fever, chest pain, shortness of breath, headaches or any other medical conditions. - ROS Review of Systems: As noted in HPI - Exam Vital Signs: Vital Signs 11/11/19 11:08 Temperature 98.1 F Pulse Rate 104 H Respiratory 18 Rate Blood Pressure 108/70 O2 Sat by Pulse 98 Oximetry Physical Exam: GENERAL: Alert and oriented x3, no apparent distress, Normal Gait, atraumatic. HEAD: Head is normocephalic and a-traumatic. PSYCHIATRIC: Mood is congruent with affect, denies suicidal or homicidal ideations. SKIN: Warm and dry, No lesions, No ulceration or induration present. MSE screening note: Focused history and physical exam performed. Due to findings the following was ordered: ED Medical Decision Making - Medical Decision Making 24-year-old male who presents for medication refill. Patient presents for nonmedical emergency I discussed with patient that as the emergency department we do not give a medication refill. I Discussed with patient that he needs to be evaluated by psychiatrist. Psychiatric referral given to patient. Discussed with patient to call today to make an appointment to be seen and evaluated. Vital signs are stable patient is in no acute or respiratory distress. Patient states understanding instructions and will follow-up ED Disposition for MSE Clinical Impression: Medication refill Disposition: Z-07 MED SCREENING EXAM-LEFT Is pt being admited?: No Does the pt Need Aspirin: No Condition: Stable Additional Instructions: Make sure to follow up with the primary care physician as discussed. You have also been given referrals to see the psychiatrist in the [facility] for evaluation and continued management of your mental health If you have any medical emergencies or develop any symptoms please return to ED immediately. Referrals: HEATHER CHISHOLM MD [Staff Physician] - 3-5 Days [facility] [Outside] - 3-5 Days [facility] [Outside] - 3-5 Days [facility] [Outside] - 3-5 Days [facility] [Outside] - 3-5 Days [facility] [Outside] - 3-5 Days Forms: Work/School Release Form(ED) Time of Disposition: 11:33 (\)
== END 2019-11-11 12:15 | disposition left against medical advice (07) ==
LOC: ED 11:08
DX: F20.0 Paranoid schizophrenia (principal); Z76.0 Encounter for issue of repeat prescription; Z87.820 Personal history of traumatic brain injury; Z88.8 Allergy status to other drugs, medicaments and biological substances
CPT/HCPCS: 99282

== ENCOUNTER 2019-11-15 00:09 | Emergency (ER) | payer SELFPAY ==
[2019-11-15] MEDS ORDERED: IBUPROFEN ORAL LIQD 100 MG/5 ML ORAL.LIQD PO ONE (00:52)
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
[2019-11-15 01:49] VITALS: BP 139/87
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
== END 2019-11-15 03:10 | disposition other institution (70) ==
LOC: ED 00:09
DX: S02.69XA Fracture of mandible of other specified site, initial encounter for closed fracture (principal); G40.909 Epilepsy, unspecified, not intractable, without status epilepticus; F25.0 Schizoaffective disorder, bipolar type; F17.200 Nicotine dependence, unspecified, uncomplicated; F12.10 Cannabis abuse, uncomplicated; Z79.899 Other long term (current) drug therapy; Z88.6 Allergy status to analgesic agent; Z88.8 Allergy status to other drugs, medicaments and biological substances; X58.XXXA Exposure to other specified factors, initial encounter; Y93.89 Activity, other specified; Y92.89 Other specified places as the place of occurrence of the external cause; Y99.8 Other external cause status
CPT/HCPCS: 70110

== ENCOUNTER 2020-03-08 03:43 | Emergency (ER) | payer SELFPAY ==
[2020-03-08] MEDS ORDERED: levETIRAcetam 1000 MG/NS 0.75% 1,000 MG/100 ML BAG IV ONE (03:54)
--- NOTE | 2020-03-08 04:00 | Emergency Department Report ---
ED Seizure HPI - General Chief Complaint: Seizure Stated Complaint: AMS/POSS SEIZURE Time Seen by Provider: 03/08/20 03:54 Source: patient, EMS Mode of arrival: Stretcher Limitations: No Limitations - History of Present Illness Initial Comments: cc: possible seizure HPI: This is a 25-year-old male with history of seizure disorder and schizophrenia who presents with possible seizure. Roommate found patient unresponsive on the bathroom floor. He was incontinent of urine. Patient was also drooling. Patient does not recall aura or feeling of impending seizure. He is amnestic of all events. He has been in normal state of health. He states that he has been compliant with Keppra. MD Complaint: possible seizure -: This morning Description of Episode: loss of consciousness, bladder incontinence Witnessed:: No Trauma: No Seizure History: known seizure disorder Place: home Possible Precipitating Event: none Associated Symptoms: denies other symptoms Treatments Prior to Arrival: none, other (Transport via EMS) - Related Data Previous Rx's Medication Instructions Recorded Last Taken Type levETIRAcetam [Keppra TAB] 750 mg PO BID #60 tablet 11/04/18 Unknown Rx levETIRAcetam [Keppra TAB] 500 mg PO BID #60 tablet 12/02/18 Unknown Rx Sulfamethoxazole/Trimethoprim 1 each PO BID #6 tablet 06/11/19 Unknown Rx [Bactrim DS TAB] LORazepam [Ativan] 0.5 mg PO QHS #7 tab 10/15/19 Unknown Rx Chlorhexidine Mouthwash [Peridex] 15 ml MM BID #1 bottle 11/15/19 Unknown Rx Clindamycin Palmitate HCl 300 mg PO TID 7 Days #2 soln.recon 11/15/19 Unknown Rx [Clindamycin Pediatric] HYDROcodone/ACETAMINOPHEN [Lortab 15 ml PO Q4HR PRN #1 solution 11/15/19 Unknown Rx 10 mg-300 mg per 15 ML ORAL LIQ] Ibuprofen Oral Liqd [Motrin Oral 400 mg PO QID PRN #1 bottle 11/15/19 Unknown Rx Liq 100 mg/5 ml] levETIRAcetam [Keppra TAB] 1,000 mg PO BID 30 Days #60 tab 12/01/19 Unknown Rx levETIRAcetam [Keppra TAB] 500 mg PO BID #60 tablet 03/08/20 Unknown Rx Allergies Allergy/AdvReac Type Severity Reaction Status Date / Time gabapentin [From Neurontin] Allergy Unknown Verified 11/11/19 11:08 pork derived (porcine) Allergy Unknown Verified 11/15/19 00:22 risperidone [From Risperdal] Allergy Unknown Verified 11/11/19 11:08 ED Review of Systems ROS: Stated complaint: AMS/POSS SEIZURE Other details as noted in HPI Comment: All other systems reviewed and negative Constitutional: denies: fever, malaise Respiratory: denies: cough, shortness of breath Gastrointestinal: denies: abdominal pain, nausea, vomiting Neurological: denies: headache, numbness, paresthesias ED Past Medical Hx - Past Medical History Previous Medical History?: Yes Hx Congestive Heart Failure: No Hx Diabetes: No Hx Seizures: Yes Hx Psychiatric Treatment: Yes (Paranoid schizophrenia bipolar) Hx Asthma: Yes Hx COPD: No Additional medical history: Heart murmur, traumatic brain injury - Social History Smoking Status: Current Every Day Smoker Substance Use Type: Marijuana - Medications Home Medications: Home Medications Medication Instructions Recorded Confirmed Last Taken Type levETIRAcetam [Keppra TAB] 750 mg PO BID #60 tablet 11/04/18 Unknown Rx levETIRAcetam [Keppra TAB] 500 mg PO BID #60 tablet 12/02/18 Unknown Rx Sulfamethoxazole/Trimethoprim 1 each PO BID #6 tablet 06/11/19 Unknown Rx [Bactrim DS TAB] LORazepam [Ativan] 0.5 mg PO QHS #7 tab 10/15/19 Unknown Rx Chlorhexidine Mouthwash [Peridex] 15 ml MM BID #1 bottle 11/15/19 Unknown Rx Clindamycin Palmitate HCl 300 mg PO TID 7 Days #2 soln.recon 11/15/19 Unknown Rx [Clindamycin Pediatric] HYDROcodone/ACETAMINOPHEN [Lortab 15 ml PO Q4HR PRN #1 solution 11/15/19 Unknown Rx 10 mg-300 mg per 15 ML ORAL LIQ] Ibuprofen Oral Liqd [Motrin Oral 400 mg PO QID PRN #1 bottle 11/15/19 Unknown Rx Liq 100 mg/5 ml] levETIRAcetam [Keppra TAB] 1,000 mg PO BID 30 Days #60 tab 12/01/19 Unknown Rx levETIRAcetam [Keppra TAB] 500 mg PO BID #60 tablet 03/08/20 Unknown Rx ED Physical Exam - General Limitations: No Limitations General appearance: alert, in no apparent distress, other (GCS 15) - Head Head exam: Present: atraumatic, normocephalic - Eye Eye exam: Present: normal appearance - ENT ENT exam: Present: mucous membranes moist - Neck Neck exam: Present: normal inspection, full ROM - Respiratory Respiratory exam: Present: normal lung sounds bilaterally. Absent: respiratory distress, wheezes, rales, rhonchi - Cardiovascular Cardiovascular Exam: Present: regular rate, normal rhythm, normal heart sounds. Absent: systolic murmur, diastolic murmur, rubs, gallop - GI/Abdominal GI/Abdominal exam: Present: soft, normal bowel sounds. Absent: distended, tenderness, guarding, rebound - Rectal Rectal exam: Present: deferred - Extremities Exam Extremities exam: Present: normal inspection - Back Exam Back exam: Present: normal inspection - Neurological Exam Neurological exam: Present: alert, oriented X3, normal gait - Psychiatric Psychiatric exam: Present: normal affect, normal mood - Skin Skin exam: Present: warm, dry, intact, normal color. Absent: rash ED Medical Decision Making - Medical Decision Making Possible seizure, patient was found unresponsive incontinent of urine in the bathroom. Upon arrival, patient alert cooperative. Next Patient received IV Keppra load. No recurrent seizure activity after 2 hours observation. Patient discharged home with prescription for Keppra. Critical care attestation.: If time is entered above; I have spent that time in minutes in the direct care of this critically ill patient, excluding procedure time. ED Disposition Clinical Impression: Seizure disorder, Breakthrough seizure Disposition: DC-01 TO HOME OR SELFCARE Is pt being admited?: No Does the pt Need Aspirin: No Condition: Stable Instructions: Epilepsy (ED) Prescriptions: levETIRAcetam [Keppra TAB] 500 mg PO BID #60 tablet Referrals: STEVEN COLES MD [Staff Physician] - 3-5 Days
== END 2020-03-08 05:15 | disposition home or self-care (01) ==
LOC: ED 03:43
DX: G40.909 Epilepsy, unspecified, not intractable, without status epilepticus (principal); F20.0 Paranoid schizophrenia; F17.200 Nicotine dependence, unspecified, uncomplicated; Z79.899 Other long term (current) drug therapy
CPT/HCPCS: 99283; J1953

== ENCOUNTER 2020-03-17 07:32 | Emergency (ER) | payer SELFPAY ==
[2020-03-17 07:55] VITALS: BP 120/82
[2020-03-17] MEDS ORDERED: levETIRAcetam 1000 MG/NS 0.75% 1,000 MG/100 ML BAG IV ONE (08:03)
--- NOTE | 2020-03-17 08:05 | Emergency Department Report ---
ED Seizure HPI - General Chief Complaint: Seizure Stated Complaint: SEIZURE Time Seen by Provider: 03/17/20 07:57 Source: patient, EMS Mode of arrival: Ambulatory Limitations: No Limitations - History of Present Illness Initial Comments: Patient is a 25-year-old male presents emergency room with complaints of a possible seizure that occurred this morning. He states that he does not know if anyone witnessed the event and states he is not sure who called the ambulance. Patient states that he takes Keppra 1000 mg twice daily, denies missing any doses. He denies any fever, nausea, vomiting, diarrhea, cough, shortness of breath, chest pain. He denies any recent illnesses. He denies biting his tongue. He denies any sick contacts or recent travel. He states that he also has a past medical history of TBI, bipolar, schizophrenia. He denies any thoughts of wanting to hurt himself or others denies any hallucinations. - Related Data Previous Rx's Medication Instructions Recorded Last Taken Type Ciprofloxacin HCl [Ciprofloxacin 500 mg PO BID 7 Days #14 tab 03/17/20 Unknown Rx TAB] levETIRAcetam [Keppra TAB] 1,000 mg PO BID 30 Days #60 tab 03/17/20 Unknown Rx Allergies Allergy/AdvReac Type Severity Reaction Status Date / Time gabapentin [From Neurontin] Allergy Unknown Verified 11/11/19 11:08 pork derived (porcine) Allergy Unknown Verified 11/15/19 00:22 risperidone [From Risperdal] Allergy Unknown Verified 11/11/19 11:08 ED Review of Systems ROS: Stated complaint: SEIZURE Other details as noted in HPI Comment: All other systems reviewed and negative ED Past Medical Hx - Past Medical History Previous Medical History?: Yes Hx Congestive Heart Failure: No Hx Diabetes: No Hx Seizures: Yes Hx Psychiatric Treatment: Yes (Paranoid schizophrenia bipolar) Hx Asthma: Yes Hx COPD: No Additional medical history: Heart murmur, traumatic brain injury - Surgical History Past Surgical History?: No - Social History Smoking Status: Unknown if ever smoked Substance Use Type: None - Medications Home Medications: Home Medications Medication Instructions Recorded Confirmed Last Taken Type Ciprofloxacin HCl [Ciprofloxacin 500 mg PO BID 7 Days #14 tab 03/17/20 Unknown Rx TAB] levETIRAcetam [Keppra TAB] 1,000 mg PO BID 30 Days #60 tab 09/18/20 Unknown Rx ED Physical Exam - General Limitations: No Limitations General appearance: alert, in no apparent distress - Head Head exam: Present: atraumatic, normocephalic - Eye Eye exam: Present: normal appearance - ENT ENT exam: Present: mucous membranes moist - Respiratory Respiratory exam: Present: normal lung sounds bilaterally. Absent: respiratory distress, wheezes, rales, rhonchi, stridor, chest wall tenderness, accessory muscle use, decreased breath sounds, prolonged expiratory - Cardiovascular Cardiovascular Exam: Present: regular rate, normal rhythm, normal heart sounds. Absent: systolic murmur, diastolic murmur, rubs, gallop - Neurological Exam Neurological exam: Present: alert, oriented X3 - Psychiatric Psychiatric exam: Present: normal affect, normal mood - Skin Skin exam: Present: warm, dry ED Course Vital Signs 03/17/20 07:51 Temperature 98.8 F Pulse Rate 86 Respiratory 18 Rate Blood Pressure 120/82 O2 Sat by Pulse 99 Oximetry ED Medical Decision Making - Lab Data Result diagrams: 03/17/20 08:31 03/17/20 08:31 Lab Results 03/17/20 03/17/20 03/17/20 Range/Units 08:31 08:31 08:39 WBC 7.0 (4.5-11.0) K/mm3 RBC 4.42 (3.65-5.03) M/mm3 Hgb 14.4 (11.8-15.2) gm/dl Hct 43.2 (35.5-45.6) % MCV 98 H (84-94) fl MCH 33 H (28-32) pg MCHC 33 (32-34) % RDW 13.6 (13.2-15.2) % Plt Count 257 (140-440) K/mm3 Lymph % (Auto) 21.0 (13.4-35.0) % [place] % (Auto) 6.9 (0.0-7.3) % Eos % (Auto) 1.4 (0.0-4.3) % Baso % (Auto) 1.0 (0.0-1.8) % Lymph # 1.5 (1.2-5.4) K/mm3 [place] # 0.5 (0.0-0.8) K/mm3 Eos # 0.1 (0.0-0.4) K/mm3 Baso # 0.1 (0.0-0.1) K/mm3 Seg Neutrophils % 69.7 (40.0-70.0) % Seg Neutrophils # 4.9 (1.8-7.7) K/mm3 Sodium 139 (137-145) mmol/L Potassium 4.5 (3.6-5.0) mmol/L Chloride 101.8 (98-107) mmol/L Carbon Dioxide 27 (22-30) mmol/L Anion Gap 15 mmol/L BUN 14 (9-20) mg/dL Creatinine 0.9 (0.8-1.3) mg/dL Estimated GFR > 60 ml/min BUN/Creatinine Ratio 16 % Glucose 91 (75-100) mg/dL Calcium 9.4 (8.4-10.2) mg/dL Total Bilirubin 0.30 (0.1-1.2) mg/dL AST 18 (5-40) units/L ALT 10 (7-56) units/L Alkaline Phosphatase 105 (35-129) units/L Total Protein 7.4 (6.3-8.2) g/dL Albumin 4.4 (3.9-5) g/dL Albumin/Globulin Ratio 1.5 % Urine Color Yellow (Yellow) Urine Turbidity Clear (Clear) Urine pH 5.0 (5.0-7.0) Ur Specific [place] 1.019 (1.003-1.030) Urine Protein 30 mg/dl (Negative) mg/dL Urine Glucose (UA) Neg (Negative) mg/dL Urine Ketones Neg (Negative) mg/dL Urine Blood Sm (Negative) Urine Nitrite Neg (Negative) Urine Bilirubin Neg (Negative) Urine Urobilinogen < 2.0 (<2.0) mg/dL Ur Leukocyte Esterase Sm (Negative) Urine WBC (Auto) 23.0 H (0.0-6.0) /HPF Urine RBC (Auto) 1.0 (0.0-6.0) /HPF Hyaline Casts 1 /LPF Urine Mucus Few /HPF Urine Opiates Screen Urine Methadone Screen Ur Barbiturates Screen Ur Phencyclidine Scrn Ur Amphetamines Screen U Benzodiazepines Scrn Urine Cocaine Screen U Marijuana (THC) Screen Drugs of Abuse Note 03/17/20 Range/Units 08:39 WBC (4.5-11.0) K/mm3 RBC (3.65-5.03) M/mm3 Hgb (11.8-15.2) gm/dl Hct (35.5-45.6) % MCV (84-94) fl MCH (28-32) pg MCHC (32-34) % RDW (13.2-15.2) % Plt Count (140-440) K/mm3 Lymph % (Auto) (13.4-35.0) % [place] % (Auto) (0.0-7.3) % Eos % (Auto) (0.0-4.3) % Baso % (Auto) (0.0-1.8) % Lymph # (1.2-5.4) K/mm3 [place] # (0.0-0.8) K/mm3 Eos # (0.0-0.4) K/mm3 Baso # (0.0-0.1) K/mm3 Seg Neutrophils % (40.0-70.0) % Seg Neutrophils # (1.8-7.7) K/mm3 Sodium (137-145) mmol/L Potassium (3.6-5.0) mmol/L Chloride (98-107) mmol/L Carbon Dioxide (22-30) mmol/L Anion Gap mmol/L BUN (9-20) mg/dL Creatinine (0.8-1.3) mg/dL Estimated GFR ml/min BUN/Creatinine Ratio % Glucose (75-100) mg/dL Calcium (8.4-10.2) mg/dL Total Bilirubin (0.1-1.2) mg/dL AST (5-40) units/L ALT (7-56) units/L Alkaline Phosphatase (35-129) units/L Total Protein (6.3-8.2) g/dL Albumin (3.9-5) g/dL Albumin/Globulin Ratio % Urine Color (Yellow) Urine Turbidity (Clear) Urine pH (5.0-7.0) Ur Specific [place] (1.003-1.030) Urine Protein (Negative) mg/dL Urine Glucose (UA) (Negative) mg/dL Urine Ketones (Negative) mg/dL Urine Blood (Negative) Urine Nitrite (Negative) Urine Bilirubin (Negative) Urine Urobilinogen (<2.0) mg/dL Ur Leukocyte Esterase (Negative) Urine WBC (Auto) (0.0-6.0) /HPF Urine RBC (Auto) (0.0-6.0) /HPF Hyaline Casts /LPF Urine Mucus /HPF Urine Opiates Screen Negative Urine Methadone Screen Negative Ur Barbiturates Screen Negative Ur Phencyclidine Scrn Negative Ur Amphetamines Screen Negative U Benzodiazepines Scrn Negative Urine Cocaine Screen Negative U Marijuana (THC) Screen Positive Drugs of Abuse Note Disclamer - Medical Decision Making Patient is a 25-year-old male presents emergency room with complaints of a possible seizure that occurred this morning. He states that he does not know if anyone witnessed the event and states he is not sure who called the ambulance. Patient states that he takes Keppra 1000 mg twice daily, denies missing any doses. He denies any fever, nausea, vomiting, diarrhea, cough, shortness of breath, chest pain. He denies any recent illnesses. He denies biting his tongue. He denies any sick contacts or recent travel. He states that he also has a past medical history of TBI, bipolar, schizophrenia. He denies any thoughts of wanting to hurt himself or others denies any hallucinations. vitals are normal. no abnormality on exam as documented in chart. labs are normal. UA shows WBCs and small leukocyte esterase. UDS positive for marijuana, discussed cessation. Patient given 1 g of Keppra while in the emergency department and had no further seizure like episodes. Patient given ceftriaxone and azithromycin while in the emergency department to cover for STDs given that this is a young male with bacteriuria. Patient given refill of his Keppra and given a prescription for ciprofloxacin. Advised patient Please take medication as prescribed. Please follow-up with your primary care doctor. Please follow-up with a neurologist. Please follow-up with the [facility]. Please follow-up with a clinic or the health department for full STD panel. You cannot operate a motor vehicle until you have been cleared by a neurologist. Return to emergency room for any new or worsening symptoms. Critical care attestation.: If time is entered above; I have spent that time in minutes in the direct care of this critically ill patient, excluding procedure time. ED Disposition Clinical Impression: Seizure, Bacteriuria Disposition: DC-01 TO HOME OR SELFCARE Is pt being admited?: No Does the pt Need Aspirin: No Condition: Stable Instructions: Sexually Transmitted Diseases (ED), Safe Sex (ED), Urinary Tract Infection in Men (ED), Recurrent Seizures Adult (ED) Additional Instructions: Please take medication as prescribed. Please follow-up with your primary care doctor. Please follow-up with a neurologist. Please follow-up with the [facility]. Please follow-up with a clinic or the health department for full STD panel. You cannot operate a motor vehicle until you have been cleared by a neurologist. Return to emergency room for any new or worsening symptoms. Prescriptions: Ciprofloxacin HCl [Ciprofloxacin TAB] 500 mg PO BID 7 Days #14 tab levETIRAcetam [Keppra TAB] 1,000 mg PO BID 30 Days #60 tab Referrals: HEATHER CHISHOLM MD [Staff Physician] - 2-3 Days [facility] [Provider Group] - 2-3 Days STEVEN COLES MD [Staff Physician] - 2-3 Days SHELTON HUDSON MD [Referring] - 2-3 Days [facility] [Outside] - 2-3 Days Print Language: QATARI
[2020-03-17 08:42] LABS: Basophils # (Auto) 0.1 K/mm3 (0.0-0.1); Eosinophils # (Auto) 0.1 K/mm3 (0.0-0.4); Eosinophils % (Auto) 1.4 % (0.0-4.3); Hematocrit 43.2 % (35.5-45.6); Hemoglobin 14.4 gm/dl (11.8-15.2); Lymphocytes # (Auto) 1.5 K/mm3 (1.2-5.4); Mean Corpuscular HGB Conc 33 % (32-34); Mean Corpuscular Volume 98 fl (84-94); Monocytes # (Auto) 0.5 K/mm3 (0.0-0.8); Monocytes % (Auto) 6.9 % (0.0-7.3); Platelet Count 257 K/mm3 (140-440); Red Blood Count 4.42 M/mm3 (3.65-5.03); Red Cell Distribution Width 13.6 % (13.2-15.2)
[2020-03-17 09:00] LABS: Alanine Aminotransferase 10 units/L (7-56); Albumin 4.4 g/dL (3.9-5); BUN/Creatinine Ratio 16; Blood Urea Nitrogen 14 mg/dL (9-20); Calcium 9.4 mg/dL (8.4-10.2); Hemolysis Index 5
[2020-03-17 09:09] LABS: Bilirubin,Urine NEG (Negative); Blood,Urine SM (Negative); Color,Urine Yellow (Yellow); Hyaline Casts,Urine 1 /LPF; Mucus,Urine FEW /HPF; Urobilinogen,Urine < 2.0 mg/dL (<2.0)
[2020-03-17] MEDS ORDERED: LIDOCAINE-MPF (1%) 10 MG/1 ML VIAL 5 ML INFILTRATI ONE (09:12)
[2020-03-17] MEDS ORDERED: AZITHROMYCIN 250 MG TAB PO ONE (09:12)
[2020-03-17 09:28] LABS: Amphetamine Screen,Urine Negative; Benzodiazepines Screen,Urine Negative; Cocaine Screen,Urine Negative; Methadone Screen,Urine Negative; Opiate Screen,Urine Negative
[2020-03-17 09:41] LABS: Cannabinoid Screen,Urine Positive
== END 2020-03-17 09:52 | disposition home or self-care (01) ==
LOC: ED 07:32
DX: G40.909 Epilepsy, unspecified, not intractable, without status epilepticus (principal); R82.71 Bacteriuria; Z79.899 Other long term (current) drug therapy; Z88.8 Allergy status to other drugs, medicaments and biological substances
CPT/HCPCS: 36415; 80053; 80307; 81001; 85025; 87086; 96365; 96372; 99284; J0696; J1953

== ENCOUNTER 2020-07-09 13:32 | Emergency (ER) | payer SELFPAY ==
--- NOTE | 2020-07-09 13:59 | Emergency Department Report ---
ED General Adult HPI - General Stated complaint: SEIZURE Time Seen by Provider: 07/09/20 13:39 - History of Present Illness Initial comments: 25-year-old male was transported to this facility via EMS. He has a history of I presume posttraumatic seizures per EMS. He states he takes Keppra. He ran out of his medicines. He states that he had a seizure last night and woke up late for his brother. The accounts receivable clerk tells me that he was out walking and byst gisella thought he was having a seizure. He states he "has a seizure when I get upset". He has a history of paranoid schizophrenia. He is not currently paranoid nor apparently irrational. Is not hallucinating. He is taking his psychiatric medications he states. He has no complaints at the time of my encounter. He states he is ready for discharge to the nurse. Patient denies any recent injury. -: Last night - Related Data Previous Rx's Medication Instructions Recorded Last Taken Type Ciprofloxacin HCl [Ciprofloxacin 500 mg PO BID 7 Days #14 tab 03/17/20 Unknown Rx TAB] levETIRAcetam [Keppra TAB] 1,000 mg PO BID 30 Days #60 tab 03/17/20 Unknown Rx levETIRAcetam [Keppra TAB] 500 mg PO BID #60 tablet 07/09/20 Unknown Rx Allergies Allergy/AdvReac Type Severity Reaction Status Date / Time gabapentin [From Neurontin] Allergy Unknown Verified 11/11/19 11:08 pork derived (porcine) Allergy Unknown Verified 11/15/19 00:22 risperidone [From Risperdal] Allergy Unknown Verified 11/11/19 11:08 ED Review of Systems ROS: Stated complaint: SEIZURE Other details as noted in HPI Constitutional: denies: chills, fever Eyes: eye discharge. denies: eye pain, vision change ENT: denies: ear pain, throat pain Respiratory: denies: cough, shortness of breath, wheezing Cardiovascular: denies: chest pain, palpitations Endocrine: no symptoms reported Gastrointestinal: denies: abdominal pain, vomiting Genitourinary: denies: urgency, dysuria Musculoskeletal: denies: back pain, joint swelling, arthralgia Skin: denies: rash, lesions Neurological: as per HPI. denies: headache, weakness, paresthesias Psychiatric: denies: anxiety, depression Hematological/Lymphatic: denies: easy bleeding, easy bruising ED Past Medical Hx - Past Medical History Hx Congestive Heart Failure: No Hx Diabetes: No Hx Seizures: Yes Hx Psychiatric Treatment: Yes (Paranoid schizophrenia bipolar) Hx Asthma: Yes Hx COPD: No Additional medical history: Heart murmur, traumatic brain injury - Social History Smoking Status: Unknown if ever smoked Substance Use Type: None - Medications Home Medications: Home Medications Medication Instructions Recorded Confirmed Last Taken Type Ciprofloxacin HCl [Ciprofloxacin 500 mg PO BID 7 Days #14 tab 03/17/20 Unknown Rx TAB] levETIRAcetam [Keppra TAB] 1,000 mg PO BID 30 Days #60 tab 03/17/20 Unknown Rx levETIRAcetam [Keppra TAB] 500 mg PO BID #60 tablet 07/09/20 Unknown Rx ED Physical Exam - General General appearance: alert, in no apparent distress - Head Head exam: Present: atraumatic, normocephalic - Eye Eye exam: Present: normal appearance. Absent: scleral icterus - ENT ENT exam: Present: mucous membranes moist - Neck Neck exam: Present: normal inspection - Respiratory Respiratory exam: Present: normal lung sounds bilaterally. Absent: respiratory distress - Cardiovascular Cardiovascular Exam: Present: regular rate, normal rhythm. Absent: systolic murmur, diastolic murmur, rubs, gallop - GI/Abdominal GI/Abdominal exam: Present: soft, normal bowel sounds. Absent: distended, tenderness, guarding, rebound - Rectal Rectal exam: Present: deferred - Extremities Exam Extremities exam: Present: normal inspection - Back Exam Back exam: Present: normal inspection - Neurological Exam Neurological exam: Present: alert, oriented X3, CN II-XII intact. Absent: motor sensory deficit - Psychiatric Psychiatric exam: Present: normal affect, normal mood - Skin Skin exam: Present: warm, dry, intact, normal color. Absent: rash ED Course - Reevaluation(s) Reevaluation #1: Upon verifying the patient's vital signs are stable he will be appropriate for discharge. 07/09/20 13:57 Critical care attestation.: If time is entered above; I have spent that time in minutes in the direct care of this critically ill patient, excluding procedure time. ED Disposition Clinical Impression: Seizure disorder Schizophrenia Qualifiers: Schizophrenia type: unspecified Qualified Code(s): F20.9 - Schizophrenia, unspecified Disposition: DC- TO HOME OR SELFCARE Is pt being admited?: No Does the pt Need Aspirin: No Condition: Stable Additional Instructions: Follow-up with your usual primary care provider/mental health provider. [facility] as needed if you have any problems with your follow-up. Prescriptions: levETIRAcetam [Keppra TAB] 500 mg PO BID #60 tablet Referrals: [facility] [Provider Group] - 3-5 Days Time of Disposition: 13:58
[2020-07-09 14:06] VITALS: BP 120/64
== END 2020-07-09 14:22 | disposition home or self-care (01) ==
LOC: ED 13:32
DX: G40.909 Epilepsy, unspecified, not intractable, without status epilepticus (principal); F25.0 Schizoaffective disorder, bipolar type; J45.909 Unspecified asthma, uncomplicated; Z79.899 Other long term (current) drug therapy; Z88.8 Allergy status to other drugs, medicaments and biological substances; Z98.890 Other specified postprocedural states
CPT/HCPCS: 99283

== ENCOUNTER 2020-07-12 05:02 | Emergency (ER) | payer SELFPAY | END 2020-07-12 09:00 | LOC: ED 05:02 | DX: R68.84 Jaw pain (principal); Z53.21 Procedure and treatment not carried out due to patient leaving prior to being seen by health care provider ==

== ENCOUNTER 2021-03-29 10:27 | Emergency (ER) | payer SELFPAY ==
[2021-03-29] MEDS ORDERED: NALOXONE 0.4 MG/1 ML INJ IV PRN (10:48)
[2021-03-29] MEDS ORDERED: levETIRAcetam 1000 MG/NS 0.75% 1,000 MG/100 ML BAG IV ONE (10:48)
[2021-03-29] MEDS ORDERED: TETANUS,DIPH,PERTUSS(ACELL) VACCINE 0.5 ML SYRINGE IM ONE (10:48)
[2021-03-29] MEDS ORDERED: LACTATED RINGERS 1,000 ML IV ONE (10:50)
--- NOTE | 2021-03-29 10:51 | Emergency Department Report ---
ED General Adult HPI - General Chief complaint: Altered Mental Status Stated complaint: OVER DOSE PUI?: No Time Seen by Provider: 03/29/21 10:42 Source: patient, EMS (Verbal report received from emergency medical services. EMS documentation not available at time of chart dictation ), RN notes reviewed, old records reviewed Mode of arrival: Stretcher Limitations: Other (Disorganized behavior and psychosis) - History of Present Illness Initial comments: The patient was evaluated in the emergency department for symptoms described in the history of present illness. He/she was evaluated in the context of the global COVID-19 pandemic, which necessitated consideration that the patient might be at risk for infection with the virus that causes COVID-19. Institutional protocols and algorithms that pertain to the evaluation of patients at risk for COVID-19 are in a state of rapid change based on information released by regulatory bodies including the CDC and federal and state organizations. These policies and algorithms were followed during the patient's care in the emergency department. Please note that these policies, procedures and recommendations changed on a rapid basis. The patient is a 26-year-old gentleman. He reportedly has a history of seizure disorder, and schizophrenia. The patient is brought to the hospital by emergency medical services. EMS reports to myself that the patient was found on the side of the road, for uncertain duration of time and uncertain mechanism. They report the patient was not responsive in the field. They report normal vital signs and Accu-Chek, and saw that the patient had small pupils. The patient was given Narcan in the field, and had improvement in his mental status. The patient himself denies physical pain. He is not homicidal or suicidal. He denies wanting to overdose. However, he is confused. He does not know the date. He knows his name. He knows that he has had a hospital. He is not accompanied by friends or family at this time for collateral information or additional information. Initially had extensive discussion with the patient regarding recommended plan of care, including acquisition of laboratory studies, and CT scan of the brain and cervical spine given confusion, blunt trauma, and concern for overdose. At the moment, the patient is refusing/declining these recommended medical studies. The patient in my pain does not have decision-making capacity. The patient is not able to describe risks, benefits and alternatives in his own words. Attempted verbal de-escalation techniques and show of force. These were not successful. As the patient was found on the side of the street with evidence of blunt trauma, and suspected overdose of uncertain intention, and he is not accompanied by a surrogate sober decision-maker, does not making decisions in his best interests, he will be placed on a 1013 for incapacitated decision- making. He will also be medicated with haloperidol, Ativan and Benadryl to allow for acquisition of time sensitive diagnostic studies to exclude emergent medical and traumatic conditions. -: This morning - Related Data Previous Rx's Medication Instructions Recorded Last Taken Type OLANzapine [ZyPREXA] 5 mg PO DAILY #30 tablet 07/09/20 Unknown Rx levETIRAcetam [Keppra TAB] 1,000 mg PO BID 30 Days #60 tab 07/09/20 Unknown Rx Allergies Allergy/AdvReac Type Severity Reaction Status Date / Time divalproex sodium Allergy Unknown Verified 07/12/20 05:14 [From Depakote] gabapentin [From Neurontin] Allergy Unknown Verified 11/11/19 11:08 pork derived (porcine) Allergy Unknown Verified 11/15/19 00:22 risperidone [From Risperdal] Allergy Unknown Verified 11/11/19 11:08 ED Review of Systems ROS: Stated complaint: OVER DOSE Other details as noted in HPI Comment: Unobtainable due to pts medical conditions Constitutional: denies: fever Cardiovascular: denies: chest pain Gastrointestinal: denies: abdominal pain Psychiatric: anxiety. denies: homicidal thoughts, suicidal thoughts ED Past Medical Hx - Past Medical History Hx Congestive Heart Failure: No Hx Diabetes: No Hx Seizures: Yes Hx Psychiatric Treatment: Yes (Paranoid schizophrenia bipolar) Hx Asthma: Yes Hx COPD: No Additional medical history: Heart murmur, traumatic brain injury - Surgical History Additional Surgical History: Brain - Social History Smoking Status: Unknown if ever smoked Substance Use Type: Other - Medications Home Medications: Home Medications Medication Instructions Recorded Confirmed Last Taken Type OLANzapine [ZyPREXA] 5 mg PO DAILY #30 tablet 07/09/20 03/29/21 Unknown Rx levETIRAcetam [Keppra TAB] 1,000 mg PO BID 30 Days #60 tab 07/09/20 03/29/21 Unknown Rx ED Physical Exam - General Limitations: Other (Disorganized behavior) General appearance: anxious, obese - Head Head exam: Present: atraumatic, normocephalic - Eye Eye exam: Present: normal appearance, PERRL, EOMI - ENT ENT exam: Present: normal exam, normal orophraynx, mucous membranes moist, normal external ear exam - Neck Neck exam: Present: normal inspection, full ROM. Absent: tenderness, meningismus - Respiratory Respiratory exam: Present: normal lung sounds bilaterally. Absent: respiratory distress, wheezes, rales, rhonchi, stridor, decreased breath sounds - Cardiovascular Cardiovascular Exam: Present: regular rate, normal rhythm, normal heart sounds. Absent: bradycardia, tachycardia, irregular rhythm, systolic murmur, diastolic murmur, rubs, gallop - GI/Abdominal GI/Abdominal exam: Present: soft. Absent: distended, tenderness, guarding, rebound, rigid, pulsatile mass - Rectal Rectal exam: Present: deferred - Extremities Exam Extremities exam: Present: full ROM, other (2+ pulses noted in the bilateral upper and lower extremities. There is no palpable cord. negative Homans sign. Muscular compartments are soft. The pelvis is stable.). Absent: normal inspection (There is abrasion noted on the right hand), pedal edema, calf tenderness - Back Exam Back exam: Present: normal inspection, full ROM. Absent: tenderness, CVA tenderness (R), CVA tenderness (L), paraspinal tenderness, vertebral tenderness - Neurological Exam Neurological exam: Present: altered (The patient is awake to name. He does not know the day.), other (No facial droop. Tongue midline. Extraocular movements intact bilaterally. Facial sensation intact to light touch in V1, V2, V3 distribution bilaterally. 5 and a 5 strength in 4 extremities. Sensation intact to light touch in 4 extremities.) - Psychiatric Psychiatric exam: Present: agitated, anxious - Skin Skin exam: Present: warm, dry, intact, normal color. Absent: rash ED Course Vital Signs 03/29/21 03/29/21 03/29/21 10:37 11:40 19:56 Temperature 98.6 F Pulse Rate 97 H Respiratory 16 Rate Blood Pressure 112/81 Blood Pressure [Left] O2 Sat by Pulse 100 99 99 Oximetry 03/29/21 03/30/21 03/30/21 20:32 03:54 10:27 Temperature 97.5 F L 98 F 98.1 F Pulse Rate 98 H 85 80 Respiratory 18 18 18 Rate Blood Pressure Blood Pressure 102/61 113/51 137/80 [Left] O2 Sat by Pulse 100 99 99 Oximetry - Reevaluation(s) Reevaluation #1: 03/29/21 11:31 Differential diagnosis, including but not limited to: Psychosis, closed head injury, cervical spine injury, seizure, overdose, medical clearance for psychiatric placement Assessment and plan: 26-year-old gentleman, who lacks decision-making capacity, who was found on the side of the road, with suspicion of overdose, possible s eizure, requires medical optimization and clearance and subsequent psychiatric evaluation. 1013 form is filled out. Patient was medicated with haloperidol, Ativan and Benadryl to allow for acquisition of time sensitive emergently necessary medical diagnostics. Obtain CT scan of the brain and cervical spine, EKG, appropriate laboratory studies, administer tetanus vaccination, obtain x-ray of the chest, pelvis and right hand. Obtain appropriate laboratory studies and urinalysis, reassess after diagnostics have resulted. Psychiatric consultation is requested. 03/29/21 12:53 Imaging studies negative for acute traumatic pathology. Awaiting laboratory studies. Awaiting psychiatric recommendations 03/29/21 17:01 Laboratory studies unremarkable. At this point time, this patient does not phong ear to have an immediate medical contraindication to psychiatric admission, evaluation, consultation and placement. Holding orders initiated. ED Medical Decision Making - Lab Data Result diagrams: 03/29/21 13:17 03/29/21 16:06 Vital Signs 03/29/21 10:37 Temperature 98.6 F Pulse Rate 97 H Respiratory 16 Rate Blood Pressure 112/81 O2 Sat by Pulse 100 Oximetry Lab Results 03/29/21 03/29/21 03/29/21 Range/Units 11:40 11:55 11:55 PT 12.8 (12.2-14.9) Sec. INR 0.90 (0.87-1.13) Sodium TNR Potassium TNR Chloride TNR Carbon Dioxide TNR Anion Gap TNR BUN 12 (9-20) mg/dL Creatinine 0.8 (0.8-1.3) mg/dL Estimated GFR > 60 ml/min BUN/Creatinine Ratio 15 % Glucose TNR Calcium TNR Total Bilirubin 0.30 (0.1-1.2) mg/dL AST TNR ALT TNR Alkaline Phosphatase 104 (35-129) units/L Ammonia (25-60) umol/L Total Creatine Kinase TNR Total Protein TNR Albumin TNR Albumin/Globulin Ratio TNR TSH (0.270-4.200) mlU/mL Salicylates (2.8-20.0) mg/dL Urine Opiates Screen Negative Urine Methadone Screen Negative Acetaminophen (10.0-30.0) ug/mL Ur Barbiturates Screen Negative Ur Phencyclidine Scrn Negative Ur Amphetamines Screen Negative U Benzodiazepines Scrn Negative Urine Cocaine Screen Negative U Marijuana (THC) Screen Positive Plasma/Serum Alcohol (0-0.07) % 03/29/21 03/29/21 03/29/21 Range/Units 11:55 11:55 11:55 PT (12.2-14.9) Sec. INR (0.87-1.13) Sodium Potassium Chloride Carbon Dioxide Anion Gap BUN (9-20) mg/dL Creatinine (0.8-1.3) mg/dL Estimated GFR ml/min BUN/Creatinine Ratio % Glucose Calcium Total Bilirubin (0.1-1.2) mg/dL AST ALT Alkaline Phosphatase (35-129) units/L Ammonia 45.0 (25-60) umol/L Total Creatine Kinase Total Protein Albumin Albumin/Globulin Ratio TSH 2.020 (0.270-4.200) mlU/mL Salicylates < 0.3 L (2.8-20.0) mg/dL Urine Opiates Screen Urine Methadone Screen Acetaminophen (10.0-30.0) ug/mL Ur Barbiturates Screen Ur Phencyclidine Scrn Ur Amphetamines Screen U Benzodiazepines Scrn Urine Cocaine Screen U Marijuana (THC) Screen Plasma/Serum Alcohol (0-0.07) % 03/29/21 03/29/21 Range/Units 11:55 11:55 PT (12.2-14.9) Sec. INR (0.87-1.13) Sodium Potassium Chloride Carbon Dioxide Anion Gap BUN (9-20) mg/dL Creatinine (0.8-1.3) mg/dL Estimated GFR ml/min BUN/Creatinine Ratio % Glucose Calcium Total Bilirubin (0.1-1.2) mg/dL AST ALT Alkaline Phosphatase (35-129) units/L Ammonia (25-60) umol/L Total Creatine Kinase Total Protein Albumin Albumin/Globulin Ratio TSH (0.270-4.200) mlU/mL Salicylates (2.8-20.0) mg/dL Urine Opiates Screen Urine Methadone Screen Acetaminophen 5.0 L (10.0-30.0) ug/mL Ur Barbiturates Screen Ur Phencyclidine Scrn Ur Amphetamines Screen U Benzodiazepines Scrn Urine Cocaine Screen U Marijuana (THC) Screen Plasma/Serum Alcohol < 0.01 (0-0.07) % - EKG Data -: EKG Interpreted by Dc EKG shows normal: sinus rhythm Rate: normal - EKG Data When compared to previous EKG there are: previous EKG unavailable 03/29/21 13:15 EKG is interpreted at 13: 07 Sinus rhythm, rate 76 bpm. Rightward axis. Poor R wave progression. Normal P wave axis. Abnormal EKG. Not a STEMI. No prior for comparison - Radiology Data Radiology results: report reviewed, image reviewed XR hand 3+V RT INDICATION / CLINICAL INFORMATION: right hand injury. COMPARISON: None available. FINDINGS: BONES/JOINT(S): No acute fracture or subluxation. No significant degenerative changes. SOFT TISSUES: No significant abnormality. ADDITIONAL FINDINGS: None. Signer Name: Damian Ortega MD Signed: 03/29/2021 10:18 AM Workstation Name: [id number] CHEST 1 VIEW INDICATION: fall found down. COMPARISON: None FINDINGS: Support devices: None. Heart: Within normal limits. Lungs/Pleura: No acute air space or interstitial disease. Additional findings: None. IMPRESSION: No acute findings. PELVIS ONE VIEW INDICATION: fall found down. COMPARISON: None. IMPRESSION: No acute osseous or soft tissue abnormality. No significant DJD. Partial sacralization of L5 is noted. Signer Name: Dung Guillen Jr, MD Signed: 03/29/2021 10:20 AM Workstation Name: [id number] CT HEAD WITHOUT CONTRAST INDICATION / CLINICAL INFORMATION: Altered Mental Status. TECHNIQUE: Axial imaging performed from the skull apex through the skull base without the use of contrast. Sagittal and coronal reformatted images. All CT scans at this location are performed using CT dose reduction for ALARA by means of automated exposure control. COMPARISON: 11/02/2018 FINDINGS: CEREBRAL PARENCHYMA: Mild cortical and subcortical encephalomalacia in the left subfrontal region is unchanged since 11/02/2018 exam. This appears to represent a chronic infarct or chronic traumatic insult. The remainder of the brain parenchyma demonstrates normal attenuation. The escobar-white interface is well- defined. HEMORRHAGE: None. EXTRA-AXIAL SPACES: Normal in size and morphology for the patient's age. VENTRICULAR SYSTEM: Normal in size and morphology for the patient's age. MIDLINE SHIFT OR HERNIATION: None. CEREBELLUM / BRAINSTEM: No significant abnormality. CALVARIUM: No significant abnormality. ORBITS: Normal as visualized. PARANASAL SINUSES / MASTOID AIR CELLS: Normal as visualized. SOFT TISSUES of HEAD: No significant abnormality. ADDITIONAL FINDINGS: None. IMPRESSION: No acute intracranial abnormality. No change since 11/02/2018. 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 Please correlate with the patient's history. Signer Name: Dung Guillen Jr, MD Signed: 03/29/2021 11:06 AM Workstation Name: [id number] CHEST 1 VIEW INDICATION: fall found down. COMPARISON: None FINDINGS: Support devices: None. Heart: Within normal limits. Lungs/Pleura: No acute air space or interstitial disease. Additional findings: None. IMPRESSION: No acute findings. PELVIS ONE VIEW INDICATION: fall found down. COMPARISON: None. IMPRESSION: No acute osseous or soft tissue abnormality. No significant DJD. Partial sacralization of L5 is noted. Signer Name: Dung Guillen Jr, MD Signed: 03/29/2021 10:20 AM CHEST 1 VIEW INDICATION: fall found down. COMPARISON: None FINDINGS: Support devices: None. Heart: Within normal limits. Lungs/Pleura: No acute air space or interstitial disease. Additional findings: None. IMPRESSION: No acute findings. PELVIS ONE VIEW INDICATION: fall found down. COMPARISON: None. IMPRESSION: No acute osseous or soft tissue abnormality. No significant DJD. Partial sacralization of L5 is noted. Signer Name: Dung Guillen Jr, MD Signed: 03/29/2021 10:20 AM Workstation Name: [id number] CT CERVICAL SPINE WITHOUT CONTRAST INDICATION: found on street, intoxication, seizure, altered mental status TECHNIQUE: Axial imaging performed through the cervical spine without the use of contrast. Sagittal and coronal reconstructed images were also reviewed. All CT scans at this location are performed using CT dose reduction for ALARA by means of automated exposure control. COMPARISON: None FINDINGS: Alignment: Spinal alignment is normal. Bones: There is no acute osseous abnormality. No significant degenerative changes. No bone lesion. Soft tissues: No acute or significant incidental soft tissue abnormality. IMPRESSION: Unremarkable CT of the cervical spine. No acute injury is appreciated. Signer Name: Dung Guillen Jr, MD Signed: 03/29/2021 11:07 AM Workstation Name: [id number] Critical care attestation.: If time is entered above; I have spent that time in minutes in the direct care of this critically ill patient, excluding procedure time. ED Disposition Clinical Impression: Abrasion of right hand, Disorganized behavior, History of drug overdose, Psychosis, Medical clearance for psychiatric admission, Closed head injury Disposition: HOME / SELF CARE / HOMELESS Is pt being admited?: No Does the pt Need Aspirin: No Condition: Good Instructions: Managing Bipolar Disorder, Head Injury, Adult, Xkbq-[id number], Abrasion, [id number] Additional Instructions: Professional and Agency Contacts To help Res[facility] Crises (20/01) [place] Crisis Line: Suicide Prevention Line: Crisis Text Line: Text START to [phone] Emergency: 911 Outpatient COMMUNITY Behavioral Health Resources: DEKASSANDRAB: [facility] [address], [place] [address] [facility] [address] [place] [address] Friday thru Friday - 8am - 5pm Call to schedule an assessment for mental health and substance abuse programs [facility] Address: [address] [place], [place] [address]Friday thru Friday- 7am-2pm [facility] Address: [address] [place] [address] Friday thru Friday: 8:30AM-5PM Referrals: PRIMARY CAREMD [Primary Care Provider] - 3-5 Days
--- NOTE | 2021-03-29 11:22 | XRay Report ---
XR hand 3+V RT INDICATION / CLINICAL INFORMATION: right hand injury. COMPARISON: None available. FINDINGS: BONES/JOINT(S): No acute fracture or subluxation. No significant degenerative changes. SOFT TISSUES: No significant abnormality. ADDITIONAL FINDINGS: None. Signer Name: Damian Ortega MD Signed: 03/29/2021 11:18 AM Workstation Name: [id number]
[2021-03-29] MEDS ORDERED: diphenhydrAMINE 50 MG/ML VIAL IV ONE (11:24)
[2021-03-29] MEDS ORDERED: HALOPERIDOL LACTATE 5 MG/1 ML INJ IM PRN (11:24)
[2021-03-29] MEDS ORDERED: LORazepam 2 MG/ML VIAL IV PRN (11:24)
--- NOTE | 2021-03-29 11:24 | XRay Report ---
CHEST 1 VIEW INDICATION: fall found down. COMPARISON: None FINDINGS: Support devices: None. Heart: Within normal limits. Lungs/Pleura: No acute air space or interstitial disease. Additional findings: None. IMPRESSION: No acute findings. PELVIS ONE VIEW INDICATION: fall found down. COMPARISON: None. IMPRESSION: No acute osseous or soft tissue abnormality. No significant DJD. Partial sacralizatio n of L5 is noted. Signer Name: Dung Guillen Jr, MD Signed: 03/29/2021 11:20 AM Workstation Name: [id number]
[2021-03-29] MEDS ORDERED: ZIPRASIDONE MESYLATE 20 MG VIAL IM PRN (11:58)
--- NOTE | 2021-03-29 12:11 | Cat Scan Report ---
CT HEAD WITHOUT CONTRAST INDICATION / CLINICAL INFORMATION: Altered Mental Status. TECHNIQUE: Axial imaging performed from the skull apex through the skull base without the use of cont rast. Sagittal and coronal reformatted images. All CT scans at this location are performed using CT dose reduction for ALARA by means of automated exposure control. COMPARISON: 11/02/2018 FINDINGS: CEREBRAL PARENCHYMA: Mild cortical and subcortical encephalomalacia in the left subfrontal region is unchanged since 11/02/2018 exam. This appears to represent a chronic infarct or chronic traumatic insul t. The remainder of the brain parenchyma demonstrates normal attenuation. The escobar-white interface is well-defined. HEMORRHAGE: None. EXTRA-AXIAL SPACES: Normal in size and morphology for the patient's age. VENTRICULAR SYSTEM: Normal in size and morphology for the patient's age. MIDLINE SHIFT OR HERNIATION: None. CEREBELLUM / BRAINSTEM: No significant abnormality. CALVARIUM: No significant abnormality. ORBITS: Normal as visualized. PARANASAL SINUSES / MASTOID AIR CELLS: Normal as visualized. SOFT TISSUES of HEAD: No significant abnormality. ADDITIONAL FINDINGS: None. IMPRESSION: No acute intracranial abnormality. No change since 11/02/2018. Chronic encephalomalacia in the left sub frontal region is most likely secondary to previous ischemic insult or traumatic injury. Please corre late with the patient's history. Signer Name: Dung Guillen Jr, MD Signed: 03/29/2021 12:06 PM Workstation Name: [id number]
--- NOTE | 2021-03-29 12:13 | Cat Scan Report ---
CT CERVICAL SPINE WITHOUT CONTRAST INDICATION: found on street, intoxication, seizure, altered mental status TECHNIQUE: Axial imaging performed through the cervical spine without the use of contrast. Sagittal and coronal reconstructed images were also reviewed. All CT scans at this location are performed us ing CT dose reduction for ALARA by means of automated exposure control. COMPARISON: None FINDINGS: Alignment: Spinal alignment is normal. Bones: There is no acute osseous abnormality. No significant degenerative changes. No bone lesion. Soft tissues: No acute or significant incidental soft tissue abnormality. IMPRESSION: Unremarkable CT of the cervical spine. No acute injury is appreciated. Signer Name: Dung Guillen Jr, MD Signed: 03/29/2021 12:07 PM Workstation Name: [id number]
[2021-03-29 12:29] LABS: Amphetamine Screen,Urine Negative; Benzodiazepines Screen,Urine Negative; Cocaine Screen,Urine Negative; Methadone Screen,Urine Negative; Opiate Screen,Urine Negative
[2021-03-29 12:31] LABS: BUN/Creatinine Ratio 15; Blood Urea Nitrogen 12 mg/dL (9-20); Hemolysis Index 557
[2021-03-29 12:41] LABS: Cannabinoid Screen,Urine Positive
[2021-03-29 12:44] LABS: Calcium TNR mg/dL (8.4-10.2)
[2021-03-29 12:45] LABS: Alanine Aminotransferase TNR units/L (7-56); Albumin TNR g/dL (3.9-5)
[2021-03-29 12:49] LABS: INR 0.9 (0.87-1.13)
[2021-03-29 13:44] LABS: Hematocrit 41.1 % (35.5-45.6); Mean Corpuscular HGB Conc 34 % (32-34); Mean Corpuscular Volume 98 fl (84-94); Platelet Count 243 K/mm3 (140-440); Red Blood Count 4.22 M/mm3 (3.65-5.03)
[2021-03-29 14:27] LABS: Color,Urine Yellow (Yellow)
[2021-03-29 14:28] LABS: Bilirubin,Urine Negative (Negative); Blood,Urine Negative (Negative)
[2021-03-29 14:29] LABS: Bacteria,Urine Negative /HPF (Negative); RBC,Urine < 1.0 /HPF (0.0-6.0); WBC,Urine < 1.0 /HPF (0.0-6.0)
[2021-03-29 16:49] LABS: BUN/Creatinine Ratio 12; Blood Urea Nitrogen 11 mg/dL (9-20); Calcium 9.3 mg/dL (8.4-10.2); Hemolysis Index 63
[2021-03-29] MEDS ORDERED: NON-FORMULARY EACH (Levetiracetam [Keppra Tab] 1,000 MG Tablet) PO SCH (22:00)
[2021-03-29] MEDS: levETIRAcetam 500 MG TAB PO SCH (22:50)
[2021-03-30] MEDS: levETIRAcetam 500 MG TAB PO SCH (09:47)
[2021-03-30 10:28] VITALS: BP 137/80
--- NOTE | 2021-03-30 11:38 | Emergency Department Report ---
Blank Doc - Documentation Documentation: 26-year-old male with a past medical history of paranoid schizophrenia,, seizure disorder and traumatic brain injury initially was uncooperative during initial assessment Vital signs unremarkable. Labs reviewed. As per nurses note no events overnight Mental health recommended to discontinue 1013 as per note from March 29 6:45 PM with recommendation of case management follow-up with prison to ensure patient is following up with medications. Outpatient follow-up recommended I spoke to the nurse regarding consulting case management and patient will be prepped for discharge. as per note today Assessment and Plan (1)Bipolar disorder, unspecified- F31.9 Treatment plan [id number] Continue home medications as prescribed. Risks, benefits and alternatives of medications discussed with the patient, questions answered and consent obtained from patient. PSYCHOTHERAPY: Supportive psychotherapy provided MEDICAL: Per primary team DELIRIUM PRECAUTIONS: Please re-orient patient frequently, keep lights on during the day, and minimize benzodiazepines and opiates as these medications could worsen patient's confusion. 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 Highway Engineer will provide patient with out patient resources. Will sign off. Thank you for the consult. Please contact with any questions and/or concerns. Case staffed with Dr. Cheek
--- NOTE | 2021-03-30 12:15 | Consultation ---
History of Present Illness - Reason for Consult Consult date: 03/30/21 Reason for consult: Mental health evaluation - History of Present Psychiatric Illness Lasha Márquez is a 26 year old male with history of Bipolar, Schizophrenia, Insomnia and Epilepsy. In my interview with the patient, he reports that ambulance found him on the street and brought him to the ED. The patient is unable to recall what happened. The patient reports being compliant with psychotropic medications and states he is under the care of his psychiatrist. He denies any current suicidal ideation and denies hallucinations. Psych History Diagnoses: Bipolar, Schizophrenia, Insomnia Suicide attempts or Self-harm behavior:Yes, cutting Prior psychiatric hospitalizations: Yes Substance Abuse history:marijuana Previous psychiatric medications tried: Risperidone currently on Keppra, Xyprexa Outpatient treatment: Yes PAST MEDICAL HISTORY: none reported Family Psychiatric History: None reported or documented SOCIAL HISTORY Marital Status: Single Living Arrangements: Lives alone Employment Status:Unemployed Access to guns/weapons: Denies Education: 10th Grade History of Abuse: Denies Legal History: None reported REVIEW OF SYSTEMS Constitutional: Negative for weight loss ENT: Negative for stridor Respiratory: Negative for cough or hemoptysis All other systems reviewed and are negative MENTAL STATUS EXAMINATION General Appearance and Behavior: Age appropriate, good hygiene, wearing appropriate clothes, sleeping, cooperative Cooperation: Participating but drowsy Psychomotor Behavior: unremarkable and within normal limits Mood: "good" Affect and affective range: congruent with mood Thought Process:Goal directed Thought Content: Not Suicidal Speech: Normal volume, Regular rate and rhythm, Suicidal Ideation: Denies Homicidal Ideation:Denies Hallucinations:Denies Delusions: None elicited Impulse Control: Questionable Insight and Judgment: Limited insight and fairjudgment, Memory: Normal, Attention: Normal Orientation: Alert, oriented Assessment and Plan (1)Bipolar disorder, unspecified- F31.9 Treatment plan [id number] Continue home medications as prescribed. Risks, benefits and alternatives of medications discussed with the patient, questions answered and consent obtained from patient. PSYCHOTHERAPY: Supportive psychotherapy provided MEDICAL: Per primary team DELIRIUM PRECAUTIONS: Please re-orient patient frequently, keep lights on during the day, and minimize benzodiazepines and opiates as these medications could worsen patient's confusion. MENTAL HEALTH DIRECTOR: Defer to primary Disposition: Do not recommend acute psychiatric inpatient treatment. Highway Painter Helper will provide patient with out patient resources. Will sign off. Thank you for the consult. Please contact with any questions and/or concerns. Case staffed with Dr. Cheek Medications and Allergies Medications and Allergies Allergies Allergy/AdvReac Type Severity Reaction Status Date / Time divalproex sodium Allergy Unknown Verified 07/12/20 05:14 [From Depakote] gabapentin [From Neurontin] Allergy Unknown Verified 11/11/19 11:08 pork derived (porcine) Allergy Unknown Verified 11/15/19 00:22 risperidone [From Risperdal] Allergy Unknown Verified 11/11/19 11:08 Home Medications Medication Instructions Recorded Confirmed Last Taken Type OLANzapine [ZyPREXA] 5 mg PO DAILY #30 tablet 07/09/20 03/29/21 Unknown Rx levETIRAcetam [Keppra TAB] 1,000 mg PO BID 30 Days #60 tab 07/09/20 03/29/21 Unknown Rx Active Meds: Active Medications Haloperidol Lactate (Haloperidol Lactate 5 Mg/1 Ml Inj) 5 mg IM Q6HR PRN PRN Reason: Agitation Last Admin: 03/29/21 11:37 Dose: 5 mg Documented by: Levetiracetam (Levetiracetam 500 Mg Tab) 1,000 mg PO BID DAMIÁN Last Admin: 03/30/21 09:47 Dose: 1,000 mg Documented by: Lorazepam (Lorazepam 2 Mg/Ml Vial) 2 mg IV Q4HR PRN PRN Reason: Agitation Last Admin: 03/29/21 11:37 Dose: 2 mg Documented by: Naloxone HCl (Naloxone 0.4 Mg/1 Ml Inj) 0.1 mg IV Q2MIN PRN PRN Reason: Res Rate </= 8 or 02 SAT < 92% Ziprasidone (Ziprasidone Mesylate 20 Mg Vial) 10 mg IM Q2H PRN PRN Reason: Agitation Last Admin: 03/29/21 12:55 Dose: 10 mg Documented by: Mental Status Exam - Vital signs Last Vital Signs Temp 98.1 F 03/30/21 10:27 Pulse 80 03/30/21 10:27 Resp 18 03/30/21 10:27 BP 137/80 03/30/21 10:27 Pulse Ox 99 03/30/21 10:27 Results Result Diagrams: 03/29/21 13:17 03/29/21 16:06 Abnormal lab results 03/29/21 03/29/21 03/29/21 Range/Units 11:55 11:55 13:17 MCV 98 H (84-94) fl MCH 33 H (28-32) pg RDW 13.0 L (13.2-15.2) % Carbon Dioxide (22-30) mmol/L Salicylates < 0.3 L (2.8-20.0) mg/dL Acetaminophen 5.0 L (10.0-30.0) ug/mL 03/29/21 Range/Units 16:06 MCV (84-94) fl MCH (28-32) pg RDW (13.2-15.2) % Carbon Dioxide 20 L (22-30) mmol/L Salicylates (2.8-20.0) mg/dL Acetaminophen (10.0-30.0) ug/mL All other labs normal.
--- NOTE | 2021-04-02 14:36 | Electrocardiograph Report ---
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
== END 2021-03-30 13:21 | disposition home or self-care (01) ==
LOC: ED 10:27
DX: S60.511A Abrasion of right hand, initial encounter (principal); S09.90XA Unspecified injury of head, initial encounter; F29 Unspecified psychosis not due to a substance or known physiological condition; Z13.30 Encounter for screening examination for mental health and behavioral disorders, unspecified; J45.909 Unspecified asthma, uncomplicated; F20.9 Schizophrenia, unspecified; R79.1 Abnormal coagulation profile; Z88.8 Allergy status to other drugs, medicaments and biological substances; Z91.018 Allergy to other foods; Z79.899 Other long term (current) drug therapy; X58.XXXA Exposure to other specified factors, initial encounter; Y93.89 Activity, other specified; Y92.89 Other specified places as the place of occurrence of the external cause; Y99.8 Other external cause status
CPT/HCPCS: 36415; 70450; 71045; 72125; 72170; 73130; 80048; 80053; 80307; 81001; 82140; 84443; 85027; 85610; 93005; 96372; 96374; 96375; 99285; J1200; J1630; J2060; J3486; 80320; G0480